=== PATIENT | male | born 1945 | race Caucasian/White ===

== ENCOUNTER → 2022-07-13 | Outpatient (CLI) | payer MEDICARE ==
[2022-07-13 11:12] VITALS: BP 147/83; PULSE 68; RESP 18; TEMP 97.9
--- NOTE | 2022-07-13 14:38 | P.PAINPG ---
PQRS Measure Charge Sheet Comment: HISTORY OF PRESENT ILLNESS: 77 yr old male w niece at side as a referral from Dr. Pretty presents today w severe and chronic LBP secondary to for evaluation. Pt states his pain level is currently at /10 in intensity, intermittent, sharp pain, localized in kelsey lwoer lumbar spine w radiation towards the RLE and R ankle. Pain is provoked w cold weather, inactivity and sitting for periods of 30 min or more. Pain is alleviated in PT currently x 4 wks, massage integrated w PT, chiropractic treatments 2-3 times weekly x 2 mo 4 yrs ago, medications (Neurontin), topicals, repositioning and rest. PMH: MDD, OA, BPH, Hyperlipdemia, Hx of CHI, Parkinsons Disorder, Seizure Disorder PSH: Inguinal Hernia Repair, Ventral Hernia Repair, Colonoscopy SH: Negative x 3 FH: Non contributory All: NKDA Meds: See list REVIEW OF ORGAN SYSTEMS: CONSTITUTIONAL: No fevers or chills. No recent weight loss. NEUROLOGICAL: + numbness and tingling along the distal extremities. No seizure disorders or headaches. MUSCULOSKELETAL: + pain PSYCHIATRIC: Denies current depression or suicidal thoughts. Physical Examinations : Constitutional : Cooperative , not in acute distress . Neurologic : Cranial nerve II to XII intact. No focal neurological deficits. Psychiatric : alert & oriented x 3. Matching mood & appropriate affect. Judgment & insight intact. Musculoskeletal : Cervical Spine Motor strength in the deltoid and biceps: Normal right side. Normal Left side Motor strength biceps and the wrist extensors: Normal right side . Normal left side Motor strength in the triceps muscle: Normal right side. Normal left side Deep tendon reflexes: Normal at the biceps. Normal at Brachioradialis. Normal at triceps Vertebral body tenderness to deep palpation over Cervical facet loading test: positive bilaterally Spurling test: positive bilaterally Neck distraction test: positive bilaterally Afia sign: positive bilaterally Lumbar spine Motor strength lower extremities ,thigh and legs 5/5 Right side , 5/5 Left side Deep tendon reflexes : Normal Knee Jerk. Normal Ankle Jerk Vertebral body tenderness over L5 Lumbar facet Loading Test: positive Right / positive Left Range of motion of the lumbar spine Flexion 30 degrees, extension 10 degrees Straight Leg Raise test: Left/ Right positive at degree Elyssa test: positive right / positive left. Severe tenderness over the Sacroiliac joint on the Right / Left sides Gaenslen test: positive bilaterally Seated flexion test: positive bilaterally. Sacral spine : Severe tenderness over the Sacroiliac joint: right side / left side Range of motion: Flexion of the lumbar spine <60 degrees Range of motion: Extension of the lumbar spine <20 degrees Gaenslen's Test positive Buster's Test positive Elyssa test: positive right side / left side Thigh Thrust Test Sacral Thrust Test Imaging: CT without contrast of the lumbar spine from 05/12/22 reviewed. Assessment/ Plan : Lumbar DDD, Lumbar spondylosis, Lumbar stenosis Recommendation of DANIEL L5-S1. May need a series of injections, up to 3 wthin a 6 mo period, for optimal pain relief. Risks, benefits of procedure discussed and patient verbalized understanding. Admits to aspirin or anti- coagulant use or medical history of diabetes. Protocol for discontinuation/ continuation of medications sean procedure discussed. All questions answered. I have spent greater than 30 minutes on patient care today. Dr Mesa was available by phone for the evaluation of this patient. The time was used to review the medical records including relevant urine studies and Prescription history (MAPs), review of the available imaging, evaluation and examination of the patient, coordination of care with the medical staff and if applicable referring physicians, as well as creation of the medical record Home Medications: Ambulatory Orders Aspirin 81 mg PO DAILY 06/05/17 Atorvastatin [Lipitor] 40 mg PO HS 06/05/17 Multivitamin [Men's Multi-Vitamin] 1 each PO DAILY 06/05/17 Naproxen [Naprosyn] 375 mg PO Q12HR 06/05/17 Tamsulosin [Flomax] 0.4 mg PO DAILY 06/05/17 Gabapentin [Neurontin] 300 mg PO TID 07/13/22 Meloxicam [Mobic] 15 mg PO 07/13/22 Controlled Substance Measures - Controlled Substance Measures Is patient prescribed a controlled substance at discharge?: No
== END ==
LOC: PNWHC3 10:11
PROVIDERS: ATTEND Specialist
DX: M48.062 Spinal stenosis, lumbar region with neurogenic claudication (principal); M51.26 Other intervertebral disc displacement, lumbar region; M47.816 Spondylosis without myelopathy or radiculopathy, lumbar region; M51.36 Other intervertebral disc degeneration, lumbar region; F32.9 Major depressive disorder, single episode, unspecified; M19.90 Unspecified osteoarthritis, unspecified site; E78.5 Hyperlipidemia, unspecified; G40.909 Epilepsy, unspecified, not intractable, without status epilepticus
CPT/HCPCS: 99211

== ENCOUNTER 2022-07-24 14:34 | Inpatient (IN) | payer MEDICARE ==
[2022-07-24 15:18] LABS: Basophils % (A) 0 %; Eosinophils % (A) 0 %; HGB 16.6 gm/dL (13.0-17.5); Lymphocytes # (A) 0.9 k/uL (1.0-4.8); Lymphocytes % (A) 7 %; MCHC 34.5 g/dL (31.0-37.0); Mean Platelet Volume 8.3; Monocytes % (A) 8 %; Neutrophils # (A) 10.9 k/uL (1.3-7.7); Neutrophils % (A) 83 %; Platelet Count 168 k/uL (150-450); RBC 5.51 m/uL (4.30-5.90); RDW 13.5 % (11.5-15.5); WBC 13.1 k/uL (3.8-10.6)
[2022-07-24 15:28] LABS: Albumin 4.7 g/dL (3.5-5.0); Calcium 9.5 mg/dL (8.4-10.2); Magnesium 2.1 mg/dL (1.6-2.3); Total Bilirubin 1.5 mg/dL (0.2-1.3); Total Protein 6.7 g/dL (6.3-8.2)
--- NOTE | 2022-07-24 16:18 | XR ---
EXAMINATION TYPE: XR chest 1V portable DATE OF EXAM: 07/24/2022 COMPARISON: None HISTORY: AMS TECHNIQUE: Single frontal view of the chest is obtained. FINDINGS: There is no focal air space opacity, pleural effusion, or pneumothorax seen. The cardiac silhouette size is within normal limits. The osseous structures are intact. IMPRESSION: No acute process.
--- NOTE | 2022-07-24 16:21 | ED ---
General Adult HPI - General Chief complaint: Altered Mental Status Stated complaint: weakness Time Seen by Provider: 07/24/22 14:41 Source: patient, family, EMS, RN notes reviewed, old records reviewed Mode of arrival: EMS Limitations: altered mental status - History of Present Illness Initial comments: 77-year-old male presents from home for evaluation of increased confusion and increased difficulty with ADLs. Patient was found on his couch by family. Patient had not removed in the past 12 hours. He's been having some difficulty with even simple tasks. Patient himself is alert, slow to respond but oriented. He does not wish to be evaluated but agrees to some baseline testing. He has a history of Parkinson's. - Related Data Home Medications Medication Instructions Recorded Confirmed Atorvastatin [Lipitor] 40 mg PO HS 06/05/17 07/24/22 Tamsulosin [Flomax] 0.4 mg PO DAILY 06/05/17 07/24/22 Gabapentin [Neurontin] 300 mg PO TID 07/13/22 07/24/22 Meloxicam [Mobic] 15 mg PO DAILY 07/13/22 07/24/22 Carbidopa/Levodopa 2 tab PO QID 07/24/22 07/24/22 [Carbidopa-Levodopa 25-100 Tab] DULoxetine HCL [Cymbalta] 60 mg PO DAILY 07/24/22 07/24/22 amantadine HCL [Amantadine] 100 mg PO TID 07/24/22 07/24/22 Allergies Allergy/AdvReac Type Severity Reaction Status Date / Time No Known Allergies Allergy Verified 07/24/22 15:48 Review of Systems ROS Statement: Those systems with pertinent positive or pertinent negative responses have been documented in the HPI. ROS Other: All systems not noted in ROS Statement are negative. Past Medical History Past Medical History: Dementia, Musculoskeletal Disorder Additional Past Medical History / Comment(s): Parkinsons, possible but unconfirmed History of Any Multi-Drug Resistant Organisms: None Reported Past Surgical History: Unable to Obtain Past Psychological History: No Psychological Hx Reported Smoking Status: Never smoker General Exam Limitations: altered mental status General appearance: alert, in no apparent distress Head exam: Present: atraumatic, normocephalic Eye exam: Present: normal appearance, PERRL ENT exam: Present: mucous membranes dry Neck exam: Present: normal inspection. Absent: tenderness, meningismus Respiratory exam: Present: normal lung sounds bilaterally. Absent: respiratory distress, wheezes Cardiovascular Exam: Present: regular rate, normal rhythm GI/Abdominal exam: Present: soft. Absent: distended, tenderness, guarding Extremities exam: Present: normal inspection, normal capillary refill Neurological exam: Present: alert, other (Rigid). Absent: motor sensory deficit Psychiatric exam: Present: normal affect, normal mood Skin exam: Present: warm, dry, intact Course Vital Signs 07/24/22 07/24/22 07/24/22 14:35 17:03 18:05 Temperature 98.1 F Pulse Rate 85 80 79 Respiratory 18 16 18 Rate Blood Pressure 140/74 136/77 133/80 O2 Sat by Pulse 97 97 97 Oximetry Medical Decision Making - Medical Decision Making 77-year-old male history of Parkinson's, history of dementia which is a recent diagnosis her patient presenting from home, found by paramedics on couch, no external signs of trauma but the patient. He had not been able to move since he was placed there by family friend 12 hours prior. Patient himself does not have any complaints there is slow to respond. I did perform workup including CT brain, chest x-ray, laboratory testing. No significant abnormality with the exception of some dehydration and leukocytosis of uncertain etiology. Patient provided IV fluids. I think he will benefit from a hospital stay, evaluation for the need for possible placement or is he able to remain at home and his current state. Because case with Stephani covering for [facility] - Lab Data Result diagrams: 07/24/22 15:02 07/24/22 15:02 Lab Results 07/24/22 07/24/22 07/24/22 Range/Units 15:02 15:02 16:33 WBC 13.1 H (3.8-10.6) k/uL RBC 5.51 (4.30-5.90) m/uL Hgb 16.6 (13.0-17.5) gm/dL Hct 48.0 (39.0-53.0) % MCV 87.0 (80.0-100.0) fL MCH 30.0 (25.0-35.0) pg MCHC 34.5 (31.0-37.0) g/dL RDW 13.5 (11.5-15.5) % Plt Count 168 (150-450) k/uL MPV 8.3 Neutrophils % 83 % Lymphocytes % 7 % Monocytes % 8 % Eosinophils % 0 % Basophils % 0 % Neutrophils # 10.9 H (1.3-7.7) k/uL Lymphocytes # 0.9 L (1.0-4.8) k/uL Monocytes # 1.0 (0-1.0) k/uL Eosinophils # 0.0 (0-0.7) k/uL Basophils # 0.0 (0-0.2) k/uL Sodium 140 (137-145) mmol/L Potassium 4.0 (3.5-5.1) mmol/L Chloride 98 (98-107) mmol/L Carbon Dioxide 27 (22-30) mmol/L Anion Gap 15 mmol/L BUN 38 H (9-20) mg/dL Creatinine 1.07 (0.66-1.25) mg/dL Est GFR (CKD-EPI)AfAm 79 (>60 ml/min/1.73 sqM) Est GFR (CKD-EPI)NonAf 68 (>60 ml/min/1.73 sqM) Glucose 163 H (74-99) mg/dL Calcium 9.5 (8.4-10.2) mg/dL Magnesium 2.1 (1.6-2.3) mg/dL Total Bilirubin 1.5 H (0.2-1.3) mg/dL AST 128 H (17-59) U/L ALT 59 H (4-49) U/L Alkaline Phosphatase 109 (38-126) U/L Total Protein 6.7 (6.3-8.2) g/dL Albumin 4.7 (3.5-5.0) g/dL Urine Color Yellow Urine Appearance Clear (Clear) Urine pH 5.0 (5.0-8.0) Ur Specific [place] 1.024 (1.001-1.035) Urine Protein 1+ H (Negative) Urine Glucose (UA) 3+ H (Negative) Urine Ketones Trace H (Negative) Urine Blood Large H (Negative) Urine Nitrite Negative (Negative) Urine Bilirubin Negative (Negative) Urine Urobilinogen <2.0 (<2.0) mg/dL Ur Leukocyte Esterase Negative (Negative) Urine RBC 1 (0-5) /hpf Urine WBC 2 (0-5) /hpf Disposition Clinical Impression: Altered mental status, Dementia, Dehydration Disposition: ADMITTED IP TO THIS HOSP Condition: Stable Is patient prescribed a controlled substance at d/c from ED?: No Referrals: Mimi Bingham MD [Primary Care Provider] - 1-2 days Time of Disposition: 18:28
[2022-07-24 16:46] LABS: Appearance,Urine Clear (Clear); Bilirubin,Urine Negative (Negative); Blood,Urine Large (Negative); Color,Urine Yellow; Glucose,Urine (UA) 3+ (Negative); Ketones,Urine Trace (Negative); Leukocyte Esterase,Urine Negative (Negative); Nitrite,Urine Negative (Negative); Protein,Urine 1+ (Negative); RBC,Urine 1 /hpf (0-5); Specific Gravity,Urine 1.024 (1.001-1.035); Urobilinogen,Urine <2.0 mg/dL (<2.0); WBC,Urine 2 /hpf (0-5)
--- NOTE | 2022-07-24 17:00 | CT ---
EXAMINATION TYPE: CT brain wo con DATE OF EXAM: 07/24/2022 COMPARISON: None HISTORY: AMS weakness CT DLP: 1182.4 mGycm Automated exposure control for dose reduction was used. FINDINGS: The ventricles, basal cisterns and sulci over convexities are moderately enlarged consistent with mod erate generalized atrophy which is appropriate for the patient's age. No abnormal density is seen throughout the brain parenchyma and there is no mass effect or shift of m idline structures. There is no acute intracranial or extra-axial hemorrhage. The posterior fossa including the brainstem, fourth ventricle and cerebellar pontine angles are gross ly normal. The intraorbital contents appear normal and symmetric. Visualized paranasal sinuses and mastoid air c ells are well aerated IMPRESSION: MODERATE ATROPHY APPROPRIATE FOR THE PATIENT'S AGE. THERE IS NO ACUTE BLEED OR MASS EFFECT.
[2022-07-24] MEDS ORDERED: SODIUM CHLORIDE 0.9% 1,000 ML IV ONE (17:04)
[2022-07-24] MEDS ORDERED: NALOXONE 0.4 MG/ML 1 ML VIAL IV PRN (18:24)
[2022-07-24] MEDS ORDERED: ACETAMINOPHEN TAB 325 MG TAB PO PRN (18:24)
[2022-07-24] MEDS: SODIUM CHLORIDE 0.9% 1,000 ML IV SCH (18:58)
--- NOTE | 2022-07-25 11:18 | P.CNNES ---
History of Present Illness Consult date: 07/25/22 Requesting physician: Galen Javier Reason for Consult: AMS, hx of Parkinson's History of Present Illness: This is a 77-year-old gentleman with history of Parkinson's disease presented emergency department for increased confusion and difficulty with his ADLs. Some of the history is obtained from medical records. Patient has history of Parkinson's disease and is seems the patient has been having difficulty with simple tasks and he was found on the couch with a family in the same spot for 12 hours per the ED note. According to patient he has history of Parkinson's disease and he follows up with a neurologist but does not recall the name he said that he walks independently. He states that he does not want to be in the hospital once to go back home and that's when he will feel better. He denies of any recent fever, headache. He stated he stopped drinking alcohol for at least one year. 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 His Parkinson disease the patient is on Sinemet 10185 2tablets 4 times a day. He is on amantadine 1 tablet 3 times a day. Some other workup during his hospital visit Patient is afebrile. AST of 128 and ALT is 59. Initial serum glucose is 163. Calcium is 9.5 and sodium is 140. CT of the head is reported as moderate atrophy appropriate for the patient's a ge. There is no acute bleed or mass effect. I personally reviewed that she had an agree with the report. Review of Systems Review of system: The 12 point system was reviewed and apparent positive and negative per HPI. Past Medical History Past Medical History: Dementia, Musculoskeletal Disorder Additional Past Medical History / Comment(s): Parkinsons, possible but unconfirmed History of Any Multi-Drug Resistant Organisms: None Reported Past Surgical History: Unable to Obtain Past Psychological History: No Psychological Hx Reported Smoking Status: Never smoker Medications and Allergies Home Medications Medication Instructions Recorded Confirmed Type Atorvastatin [Lipitor] 40 mg PO HS 06/05/17 07/24/22 History Tamsulosin [Flomax] 0.4 mg PO DAILY 06/05/17 07/24/22 History Gabapentin [Neurontin] 300 mg PO TID 07/13/22 07/24/22 History Meloxicam [Mobic] 15 mg PO DAILY 07/13/22 07/24/22 History Carbidopa/Levodopa 2 tab PO QID 07/24/22 07/24/22 History [Carbidopa-Levodopa 25-100 Tab] DULoxetine HCL [Cymbalta] 60 mg PO DAILY 07/24/22 07/24/22 History amantadine HCL [Amantadine] 100 mg PO TID 07/24/22 07/24/22 History Allergies Allergy/AdvReac Type Severity Reaction Status Date / Time No Known Allergies Allergy Verified 07/24/22 15:48 Physical Examination - Vital Signs Vital Signs: Vital Signs Temp Pulse Resp BP Pulse Ox 07/25/22 10:03 68 18 145/77 96 07/25/22 08:14 66 18 148/81 96 07/25/22 05:30 98.4 F 70 16 125/70 97 07/25/22 03:50 72 16 115/89 96 07/25/22 01:07 97.8 F 72 15 111/67 96 07/24/22 22:00 78 17 138/72 95 07/24/22 21:00 77 18 129/68 95 07/24/22 20:37 78 18 147/76 98 07/24/22 19:01 76 16 119/85 97 07/24/22 18:05 79 18 133/80 97 07/24/22 17:03 80 16 136/77 97 07/24/22 14:35 98.1 F 85 18 140/74 97 Intake and Output 07/24/22 07/25/22 07/25/22 22:59 06:59 14:59 Output Total 800 Balance -800 Output: Urine 800 GENERAL: The patient is lying in bed and is not in acute distress. CHEST: The heart rate is regular rate rhythm. No murmurs to auscultation. LUNG: Clear to auscultation bilaterally no wheezing noted throughout. Not labored breathing. ABDOMEN/GI: Bowel sounds present in all 4 quadrants. No tenderness to palpation throughout. NEUROLOGICAL: Higher mental function: The patient is awake, alert, oriented to self. He correctly states he is in the hospital but does not know name. He stated the current year is 1944 (but it seems referring to date of ). Somewhat slow responding. Correctly names objects (pen watch). No aphasia or neglect. Cranial nerves: The pupils are round, equal and reactive to light and accommodation. Visual patton are full to confrontation throughout. Extraocular movement is intact no nystagmus is noted. Facial sensation is normal to touch throughout. The facial strength is normal throughout. Has somewhat flat face. Tongue is midline and moved [id number] without any difficulty. No dysarthria is noted. Shoulder shrug is normal bilaterally. Motor: The strength is 5 over 5 throughout uppers while lowers has increase tone but able to lift above gravity proximally. Normal bulk. Has resting tremor of bilateral hand (right > left). Cerebellum: Unable to assess. Sensation: Sensation is normal to touch throughout. Reflexes (right/left): 1+ throughout. Plantars are Mute bilaterally. Results - Laboratory Findings CBC and BMP: 07/24/22 15:02 07/24/22 15:02 Abnormal Lab Findings: Abnormal Labs 07/24/22 07/24/22 07/24/22 15:02 15:02 16:33 WBC 13.1 H Neutrophils # 10.9 H Lymphocytes # 0.9 L BUN 38 H Glucose 163 H Total Bilirubin 1.5 H AST 128 H ALT 59 H Urine Protein 1+ H Urine Glucose (UA) 3+ H Urine Ketones Trace H Urine Blood Large H Assessment and Plan Assessment: Altered mental status and likely due to metabolic encephalopathy and possibly component of dementia from Parkinson's Parkinson's disease Elevated liver function with ASC more than ALT. States he stopped drinking about a year ago. History of alcohol use (last use 1 year ago). Plan: I ordered via B12, folate, TSH, ammonia level, routine EEG Regarding his amantadine I recommend 1 tablet twice a day not 3 times a day and his last dose should be at 2 PM and not later (is a stimulant). Continue his Sinement home dose. We'll defer the rest of the medical management to primary team. Consult PT and OT for gait training. Recommend patient to continue following-up with his neurologist as outpatient. I will attempt to contact family members later today for more information. Thank you for the consultation. José Miguel Bermudez M.D. Neuro-Hospitalist Time with Patient: Greater than 30
[2022-07-25] MEDS: SODIUM CHLORIDE 0.9% 1,000 ML IV SCH ×2 (12:04→21:49)
[2022-07-25] MEDS: CARBIDOPA-LEVODOPA 25-100 MG 1 EACH TAB PO SCH ×5 (12:04→21:47)
[2022-07-25] MEDS: HEPARIN SODIUM,PORCINE/PF 5,000 UNIT/0.5 ML SYRINGE SQ SCH ×2 (17:14→17:58)
--- NOTE | 2022-07-25 21:46 | P.HPIM ---
History of Present Illness H&P Date: 07/25/22 Chief Complaint: Altered mental status Patient is a 77-year-old male with a known history of Parkinson disease and dementia was brought to the hospital due to increased confusion and difficulty with ADLs. Patient was found on his couch by family. Patient does have chronic spasticity and Parkinson's disease. Currently taking Sinemet. Patient has been having difficulty with even simple tasks. Patient is otherwise awake alert and oriented but slow to respond. Patient does not have any focal neurological deficits. No facial droop or dysarthria. Patient follows with neurology as an outpatient. Patient initially does not want to come to the hospital but agrees for baseline testing. Denies any complaints of abdominal pain. No nausea vomiting or diarrhea. Denied any lower abdominal discomfort. No difficulty urination or dysuria. Patient has been afebrile. Patient lives by himself. On admission chest x-ray showed no acute process. CT head showed moderate atrophy appropriate for the patient's age. There is no acute bleed or mass-effect. Laboratory test showed WC 13.1 hemoglobin 16.6 and platelets 168 and neutrophils 10.9 Sodium 140 potassium 4.0 chloride 98 BUN 38 and creatinine 1.07 Blood sugar is 163 Total bilirubin level is 1.5 AST 128 ALT 59 alk phos 109 ammonia 28 Urinalysis showed 3+ glucose and trace ketones and large blood. Review of Systems Complete review of systems could not be obtained due to patient except as per HPI Past Medical History Past Medical History: Dementia, Musculoskeletal Disorder Additional Past Medical History / Comment(s): Parkinsons, possible but unconfirmed History of Any Multi-Drug Resistant Organisms: None Reported Past Surgical History: Unable to Obtain Past Psychological History: No Psychological Hx Reported Smoking Status: Never smoker Medications and Allergies Home Medications Medication Instructions Recorded Confirmed Type Atorvastatin [Lipitor] 40 mg PO HS 06/05/17 07/24/22 History Tamsulosin [Flomax] 0.4 mg PO DAILY 06/05/17 07/24/22 History Gabapentin [Neurontin] 300 mg PO TID 07/13/22 07/24/22 History Meloxicam [Mobic] 15 mg PO DAILY 07/13/22 07/24/22 History Carbidopa/Levodopa 2 tab PO QID 07/24/22 07/24/22 History [Carbidopa-Levodopa 25-100 Tab] DULoxetine HCL [Cymbalta] 60 mg PO DAILY 07/24/22 07/24/22 History amantadine HCL [Amantadine] 100 mg PO TID 07/24/22 07/24/22 History Allergies Allergy/AdvReac Type Severity Reaction Status Date / Time No Known Allergies Allergy Verified 07/24/22 15:48 Physical Exam Vitals: Vital Signs Temp Pulse Resp BP Pulse Ox 07/25/22 10:03 68 18 145/77 96 07/25/22 08:14 66 18 148/81 96 07/25/22 05:30 98.4 F 70 16 125/70 97 07/25/22 03:50 72 16 115/89 96 07/25/22 01:07 97.8 F 72 15 111/67 96 07/24/22 22:00 78 17 138/72 95 07/24/22 21:00 77 18 129/68 95 07/24/22 20:37 78 18 147/76 98 07/24/22 19:01 76 16 119/85 97 07/24/22 18:05 79 18 133/80 97 07/24/22 17:03 80 16 136/77 97 07/24/22 14:35 98.1 F 85 18 140/74 97 Intake and Output 07/24/22 07/25/22 07/25/22 22:59 06:59 14:59 Output Total 800 Balance -800 Output: Urine 800 PHYSICAL EXAMINATION: Patient is lying in the bed comfortably, no acute distress, awake alert and oriented but slow to respond... HEENT: Normocephalic. Neck is supple. Pupils reactive. Nostrils clear. Oral cavity is moist. Neck reveals no JVD, carotid bruits, or thyromegaly. CHEST EXAMINATION: Trachea is central. Symmetrical expansion. Lung patton clear to auscultation and percussion. CARDIAC: Normal S1, S2 with no gallops. No murmurs ABDOMEN: Soft. Bowel sounds present. Nontender. No organomegaly. No abdominal bruits. Extremities: reveal no edema. No clubbing or cyanosis Neurologically awake, alert, oriented x2-3. Bilateral spasticity of the upper and lower extremities. Muscle strength 5 out of 5 in all 4 extremities. No facial droop. No gross focal deficits noted. Skin: No rash or skin lesions. Psychiatric: Coperative. Nonsuicidal, Musculoskeletal: No joint swelling or deformity. Results CBC & Chem 7: 07/24/22 15:02 07/24/22 15:02 Labs: Abnormal Lab Results - Last 24 Hours (Table) 07/24/22 07/24/22 07/24/22 Range/Units 15:02 15:02 16:33 WBC 13.1 H (3.8-10.6) k/uL Neutrophils # 10.9 H (1.3-7.7) k/uL Lymphocytes # 0.9 L (1.0-4.8) k/uL BUN 38 H (9-20) mg/dL Glucose 163 H (74-99) mg/dL Total Bilirubin 1.5 H (0.2-1.3) mg/dL AST 128 H (17-59) U/L ALT 59 H (4-49) U/L Urine Protein 1+ H (Negative) Urine Glucose (UA) 3+ H (Negative) Urine Ketones Trace H (Negative) Urine Blood Large H (Negative) Thrombosis Risk Factor Assmnt - DVT/VTE Prophylaxis DVT/VTE Prophylaxis: Pharmacologic Prophylaxis ordered Assessment and Plan Assessment: Altered mental status possible metabolic encephalopathy along with underlying dementia and Parkinson's disease. Dehydration and volume depletion Parkinson's disease History of alcohol use Dementia DVT prophylax with heparin subcu Plan: Patient will be continued on IV hydration and monitor electrolytes. Follow-up B12, folate and TSH levels. Ammonia level within normal limits. Neurology has seen the patient and recommended routine EEG. Continue with Sinemet and amantadine 1 tablet twice daily as per neurology recommendations. PT OT and follow-up closely. Patient wants to be discharged home. Discussed with his family at bedside. Time with Patient: Greater than 30
--- NOTE | 2022-07-26 02:29 | EEG ---
ELECTROENCEPHALOGRAM REPORT CLINICAL HISTORY: This is a 77-year-old gentleman with altered mental status. The video EEG is obtained to evaluate for seizure and epileptiform activity. RELEVANT MEDICATION: The patient is not on any seizure medication. EEG TYPE: A routine 21-channel EEG is performed with video using the 10/20 electrode placement system. DESCRIPTION: The background consists of [id number] voltage of 2 to 3 hertz nonrhythmic delta activity and sometimes intermixed with theta activity. There is no physiological sleep architecture. There is no focal slowing. There is [id number] amount of diffuse myogenic artifact. INTERICTAL AND ICTAL: None. ACTIVATION PROCEDURE: Photic stimulation did not evoke posterior driving response. There is no abnormality during the photic stimulation. Hyperventilation is not performed. CLINICAL INTERPRETATION: This is an abnormal routine EEG. The background slowing is suggestive of severe encephalopathy. Otherwise, there is no focal slowing, epileptiform discharges, or seizure on the EEG. Clinical correlation is recommended NAVYA / GUYN: [id number] / [id number]
[2022-07-26] MEDS: HEPARIN SODIUM,PORCINE/PF 5,000 UNIT/0.5 ML SYRINGE SQ SCH ×3 (03:00→17:07)
[2022-07-26] MEDS: CARBIDOPA-LEVODOPA 25-100 MG 1 EACH TAB PO SCH ×4 (09:06→21:14)
[2022-07-26] MEDS: TAMSULOSIN 0.4 MG CAP.ER.24H PO SCH (09:07)
[2022-07-26] MEDS: SODIUM CHLORIDE 0.9% 1,000 ML IV SCH ×2 (09:16→21:16)
[2022-07-26 10:51] LABS: Basophils # (A) 0.06 X 10*3/uL (0.00-0.10); Basophils % (A) 0.6 %; Eosinophils # (A) 0.21 X 10*3/uL (0.04-0.35); Eosinophils % (A) 2.2 %; HGB 15.3 g/dL (13.0-17.0); Immature Grans, Automated 0.5 %; Lymphocytes # (A) 1.06 X 10*3/uL (0.90-5.00); Lymphocytes % (A) 11.3 %; MCH 30.2 pg (27.0-32.0); MCHC 32.6 g/dL (32.0-37.0); MCV 92.7 fL (80.0-97.0); Mean Platelet Volume 10.4 fL (9.5-12.2); Monocytes # (A) 0.86 X 10*3/uL (0.20-1.00); Monocytes % (A) 9.2 %; NRBC Per 100 WBC 0 /100 WBCS (0.0-0.0); Neutrophils # (A) 7.14 X 10*3/uL (1.80-7.70); Neutrophils % (A) 76.2 %; Platelet Count 138 X 10*3/uL (140-440); RBC 5.07 X 10*6/uL (4.40-5.60); RDW 13.2 % (11.5-14.5); WBC 9.38 X 10*3/uL (4.50-10.00)
[2022-07-26 11:09] LABS: African American GFR (CKD) 96.5 (60.0-200.0); Albumin 3.5 g/dL (3.8-4.9); Albumin/Globulin Ratio 1.94 (1.60-3.17); Anion Gap 14.3 mmol/L (10.00-18.00); BUN/Creat Ratio 18.11 Ratio (12.00-20.00); Blood Urea Nitrogen 16.3 mg/dL (9.0-27.0); Calcium 8.5 mg/dL (8.7-10.3); Carbon Dioxide 19.7 mmol/L (20.0-27.5); Globulin 1.8 g/dL (1.6-3.3); Non-African American GFR(CKD) 83.3 (60.0-200.0); Potassium 4.2 mmol/L (3.5-5.5); Total Bilirubin 0.9 mg/dL (0.30-1.20); Total Protein 5.3 g/dL (6.2-8.2)
[2022-07-26 12:12] VITALS: RESP 16
--- NOTE | 2022-07-26 12:46 | P.PN ---
Subjective Progress Note Date: 07/26/22 The patient is seen at bedside and per nurse. I saw him and he feels a bit better. I spoke with his niece (via phone) and she stated that patient resides byself and is a brown. He follows-up with Dr. Abdias Hightower (neurologist) who patient has an appointment this coming Monday and re-evaluate if his medications needs to be modified. Objective - Vital Signs Vital signs: Vital Signs Temp 98.9 F 07/26/22 11:27 Pulse 87 07/26/22 11:27 Resp 16 07/26/22 11:27 BP 122/79 07/26/22 11:27 Pulse Ox 96 07/26/22 11:27 FiO2 Intake & Output 07/25/22 07/26/22 07/26/22 18:59 06:59 18:59 Intake Total 75 Output Total 1700 575 Balance 75 -1700 -575 Weight 73 kg Intake: Intake, IV Titration 75 Amount Sodium Chloride 0.9% 1, 75 000 ml @ 75 mls/hr IV . [id number] [facility] Rx#:[id number] Output: Urine 1700 575 Other: Voiding Method External Catheter # Voids 1 - Exam GENERAL: The patient is lying in bed and is not in acute distress. NEUROLOGICAL: Higher mental function: The patient is awake, alert, oriented to self. He correctly states he is in the hospital but does not know name. Is more awake today and responsive. Correctly names objects (pen watch). No aphasia or neglec t. Cranial nerves: The pupils are round, equal and reactive to light and accommodation. Visual patton are full to confrontation throughout. Extraocular movement is intact no nystagmus is noted. Facial sensation is normal to touch throughout. The facial strength is normal throughout. Has somewhat flat face. Tongue is midline and moved [id number] without any difficulty. No dysarthria is noted. Shoulder shrug is normal bilaterally. Motor: The strength is increase tone over the uppers and lowers (Lowers > uppers). Moving all extremities above gravity but lowers more than uppers. Normal bulk. Has resting tremor predominately right hand. Cerebellum: Unable to assess. Sensation: Sensation is normal to touch throughout. Reflexes (right/left): 1+ throughout. Plantars are Mute bilaterally. Routine EEG on 07/25/2022: Is abnormal. The background slowing suggestive of severe encephalopathy. Otherwise there is no focal slowing, epileptiform discharge or seizure on the EEG Ammonia level is 28 CK level is 1809 TSH is 1.070 Folate is 14.90 Serum vitamin B12 is 546 - Labs CBC & Chem 7: 07/26/22 05:59 07/26/22 05:59 Labs: Abnormal Lab Results - Last 24 Hours (Table) 07/25/22 07/26/22 07/26/22 Range/Units 15:26 05:59 05:59 Plt Count 138 L (140-440) X 10*3/uL Immature Gran # 0.05 H (0.00-0.04) X 10*3/uL Carbon Dioxide 19.7 L (20.0-27.5) mmol/L Calcium 8.5 L (8.7-10.3) mg/dL AST 140 H (14-35) U/L ALT 67 H (10-49) U/L Creatine Kinase 1809 H* (35-257) U/L Total Protein 5.3 L (6.2-8.2) g/dL Albumin 3.5 L (3.8-4.9) g/dL Assessment and Plan Assessment: Altered mental status and likely due to metabolic encephalopathy and possibly component of dementia from Parkinson's Increase tone in all extremities since patient had cessation of Parkinson's medications for a prolonged of time. Parkinson's disease Elevated liver function with ASC more than ALT. States he stopped drinking about a year ago. History of alcohol use (last use 1 year ago). Plan: I increased his Sinement 25-100mg 1 tab four times a day to five times a day. Decreased amantadine 1 tablet twice a day not 3 times a day and his last dose should be at 2 PM and not later (is a stimulant). We'll defer the rest of the medical management to primary team. Consult PT and OT for gait training. Recommend patient to continue following-up with his neurologist (Dr. Keaton Hightower) as outpatient and has an appointment Next Monday. I personally spoke with his niece and updated her of the plan. Also discussed the plan with his primary team. José Miguel Bermudez M.D. Neuro-Hospitalist Time with Patient: Less than 30
[2022-07-27] MEDS: HEPARIN SODIUM,PORCINE/PF 5,000 UNIT/0.5 ML SYRINGE SQ SCH ×2 (00:27→08:15)
[2022-07-27] MEDS: CARBIDOPA-LEVODOPA 25-100 MG 1 EACH TAB PO SCH ×3 (05:31→14:27)
[2022-07-27] MEDS: TAMSULOSIN 0.4 MG CAP.ER.24H PO SCH (08:15)
[2022-07-27] MEDS: SODIUM CHLORIDE 0.9% 1,000 ML IV SCH (08:17)
[2022-07-27 09:19] LABS: Anion Gap 10.7 mmol/L (10.00-18.00); BUN/Creat Ratio 16.2 Ratio (12.00-20.00); Blood Urea Nitrogen 16.2 mg/dL (9.0-27.0); Calcium 8.2 mg/dL (8.7-10.3); Carbon Dioxide 24.3 mmol/L (20.0-27.5); Non-African American GFR(CKD) 73.3 (60.0-200.0); Potassium 3.8 mmol/L (3.5-5.5)
[2022-07-27 09:35] LABS: Basophils # (A) 0.05 X 10*3/uL (0.00-0.10); Basophils % (A) 0.5 %; Eosinophils # (A) 0.19 X 10*3/uL (0.04-0.35); HCT 40.4 % (39.6-50.0); HGB 14.2 g/dL (13.0-17.0); Immature Grans, Automated 0.5 %; Lymphocytes # (A) 1.33 X 10*3/uL (0.90-5.00); Lymphocytes % (A) 14.1 %; MCH 29.9 pg (27.0-32.0); MCHC 35.1 g/dL (32.0-37.0); MCV 85.1 fL (80.0-97.0); Mean Platelet Volume 10.2 fL (9.5-12.2); Monocytes # (A) 1.01 X 10*3/uL (0.20-1.00); Monocytes % (A) 10.7 %; NRBC Per 100 WBC 0 /100 WBCS (0.0-0.0); Neutrophils # (A) 6.78 X 10*3/uL (1.80-7.70); Neutrophils % (A) 72.2 %; Platelet Count 165 X 10*3/uL (140-440); RBC 4.75 X 10*6/uL (4.40-5.60); RDW 13.2 % (11.5-14.5); WBC 9.41 X 10*3/uL (4.50-10.00)
[2022-07-27 12:00] VITALS: BP 125/79; PULSE 85; TEMP 97.9
--- NOTE | 2022-07-27 13:40 | P.PN ---
Subjective Progress Note Date: 07/26/22 Patient is a 77-year-old male with a known history of Parkinson disease and dementia was brought to the hospital due to increased confusion and difficulty with ADLs. Patient was found on his couch by family. Patient does have chronic spasticity and Parkinson's disease. Currently taking Sinemet. Patient has been having difficulty with even simple tasks. Patient is otherwise awake alert and oriented but slow to respond. Patient does not have any focal neurological deficits. No facial droop or dysarthria. Patient follows with neurology as an outpatient. Patient initially does not want to come to the hospital but agrees for baseline testing. Denies any complaints of abdominal pain. No nausea vomiting or diarrhea. Denied any lower abdominal discomfort. No difficulty urination or dysuria. Patient has been afebrile. Patient lives by himself. On admission chest x-ray showed no acute process. CT head showed moderate atrophy appropriate for the patient's age. There is no acute bleed or mass-effect. Laboratory test showed WC 13.1 hemoglobin 16.6 and platelets 168 and neutrophils 10.9 Sodium 140 potassium 4.0 chloride 98 BUN 38 and creatinine 1.07 Blood sugar is 163 Total bilirubin level is 1.5 AST 128 ALT 59 alk phos 109 ammonia 28 Urinalysis showed 3+ glucose and trace ketones and large blood. 07/26/2022 Patient is currently lying in the bed. Awake alert and oriented 3. Slow to respond. Upper extremity spasticity is better today. Patient denied any complaints of chest pain or shortness breath. No nausea vomiting or abdominal pain or diarrhea. Tolerating oral diet. Denied any difficulty urinating. Denied dysuria or hematuria. Neurology is on board. Sinemet dose increased to 5 times daily and amantadine dose decreased to twice a day. Laboratory data showed neck and sodium 139 potassium 4.2 chloride 105 bicarb is 19.7 BUN 16.3 and creatinine 0.9 CPK level is 1809 and TSH B12 and folate levels within normal limits. Current medications reviewed. Objective - Vital Signs Vital signs: Vital Signs Temp 99.3 F 07/26/22 20:46 Pulse 95 07/26/22 20:46 Resp 16 07/26/22 20:46 BP 132/76 07/26/22 20:46 Pulse Ox 95 07/26/22 20:46 FiO2 Intake & Output 07/26/22 07/26/22 07/27/22 06:59 18:59 06:59 Output Total 1700 1075 Balance -1700 -1075 Output: Urine 1700 1075 Other: Voiding Method External Catheter # Voids 1 # Bowel Movements 1 - Exam PHYSICAL EXAMINATION: Patient is lying in the bed comfortably, no acute distress, awake alert and oriented but slow to respond.. HEENT: Normocephalic. Neck is supple. Pupils reactive. Nostrils clear. Oral cavity is moist. Neck reveals no JVD, carotid bruits, or thyromegaly. CHEST EXAMINATION: Trachea is central. Symmetrical expansion. Lung patton clear to auscultation and percussion. CARDIAC: Normal S1, S2 with no gallops. No murmurs ABDOMEN: Soft. Bowel sounds normal. No organomegaly. No abdominal bruits. Extremities: reveal no edema. No clubbing or cyanosis Neurologically awake, alert, oriented x3 . Patient does have spasticity in the upper and lower extremities mainly left upper extremity.. No gross focal deficits noted Skin: No rash or skin lesions. Psychiatric: Coperative. Nonsuicidal Musculoskeletal: No joint swelling or deformity. Normal range of motion. - Labs CBC & Chem 7: 07/27/22 04:58 07/27/22 04:58 Labs: Abnormal Lab Results - Last 24 Hours (Table) 07/25/22 07/26/22 07/26/22 Range/Units 15:26 05:59 05:59 Plt Count 138 L (140-440) X 10*3/uL Immature Gran # 0.05 H (0.00-0.04) X 10*3/uL Carbon Dioxide 19.7 L (20.0-27.5) mmol/L Calcium 8.5 L (8.7-10.3) mg/dL AST 140 H (14-35) U/L ALT 67 H (10-49) U/L Creatine Kinase 1809 H* (35-257) U/L Total Protein 5.3 L (6.2-8.2) g/dL Albumin 3.5 L (3.8-4.9) g/dL Assessment and Plan Assessment: Altered mental status possible metabolic encephalopathy along with underlying dementia and Parkinson's disease. Acute rhabdomyolysis Dehydration and volume depletion Parkinson's disease History of alcohol use Dementia DVT prophylax with heparin subcu Plan: Patient will be continued on IV hydration and monitor electrolytes. Follow-up B12, folate and TSH levels. Ammonia level within normal limits. Neurology has seen the patient and recommended routine EEG. Continue with Sinemetdose increased. and amantadine 1 tablet twice daily as per neurology recommendations. PT OT is on board.. Anticipate discharged to rehab in the next 24 hours.. Discussed with his family at bedside. Time with Patient: Greater than 30
--- NOTE | 2022-07-27 13:42 | P.DS ---
Providers Date of admission: 07/24/22 18:24 Expected date of discharge: 07/27/22 Attending physician: Beatriz Willoughby Consults: 07/24/22 18:24 Consult Physician Routine Consulting Provider: Jarett Milan Consult Reason/Comments: AMS, history of Parkinson's Do you want consulting provider notified?: Yes Primary care physician: Mimi Bingham Hospital Course: Discharge diagnosis Altered mental status possible metabolic encephalopathy along with underlying dementia and Parkinson's disease. Back to baseline. Acute rhabdomyolysis. Improved Dehydration and volume depletion Parkinson's disease History of alcohol use Dementia DVT prophylax with heparin subcu Hospital course Patient is a 77-year-old male with a known history of Parkinson disease and dementia was brought to the hospital due to increased confusion and difficulty with ADLs. Patient was found on his couch by family. Patient does have chronic spasticity and Parkinson's disease. Currently taking Sinemet. Patient has been having difficulty with even simple tasks. Patient is otherwise awake alert and oriented but slow to respond. Patient does not have any focal neurological deficits. No facial droop or dysarthria. Patient follows with neurology as an outpatient. Patient initially does not want to come to the hospital but agrees for baseline testing. Denies any complaints of abdominal pain. No nausea vomiting or diarrhea. Denied any lower abdominal discomfort. No difficulty urination or dysuria. Patient has been afebrile. Patient lives by himself. On admission chest x-ray showed no acute process. CT head showed moderate atrophy appropriate for the patient's age. There is no acute bleed or mass-effect. Laboratory test showed WC 13.1 hemoglobin 16.6 and platelets 168 and neutrophils 10.9 Sodium 140 potassium 4.0 chloride 98 BUN 38 and creatinine 1.07 Blood sugar is 163 Total bilirubin level is 1.5 AST 128 ALT 59 alk phos 109 ammonia 28 Urinalysis showed 3+ glucose and trace ketones and large blood. 07/26/2022 Patient is currently lying in the bed. Awake alert and oriented 3. Slow to respond. Upper extremity spasticity is better today. Patient denied any complaints of chest pain or shortness breath. No nausea vomiting or abdominal pain or diarrhea. Tolerating oral diet. Denied any difficulty urinating. Denied dysuria or hematuria. Neurology is on board. Sinemet dose increased to 5 times daily and amantadine dose decreased to twice a day. Laboratory data showed neck and sodium 139 potassium 4.2 chloride 105 bicarb is 19.7 BUN 16.3 and creatinine 0.9 CPK level is 1809 and TSH B12 and folate levels within normal limits. 07/27/2022 Patient is sitting with chair. Awake alert and oriented 3. No complaints of chest pain or shortness of breath. Feels better today. Spasticity is much improved and patient is part spreading in physical therapy. Continue with Sinemet and amantadine. Patient has been afebrile. Denied any dysuria or hematuria. No nausea vomiting or abdominal pain or diarrhea. Tolerating oral diet. Laboratory data showed CPK level came down to, BUN 16.2 and creatinine 1.0, bicarb 24.3 and potassium 3.8 sodium 137 And WBC 9.4 hemoglobin 14.2 and platelets 165 Patient is being discharged to rehab today. PHYSICAL EXAMINATION: Patient is lying in the bed comfortably, no acute distress, awake alert and oriented but slow to respond.. HEENT: Normocephalic. Neck is supple. Pupils reactive. Nostrils clear. Oral cavity is moist. Neck reveals no JVD, carotid bruits, or thyromegaly. CHEST EXAMINATION: Trachea is central. Symmetrical expansion. Lung patton clear to auscultation and percussion. CARDIAC: Normal S1, S2 with no gallops. No murmurs ABDOMEN: Soft. Bowel sounds normal. No organomegaly. No abdominal bruits. Extremities: reveal no edema. No clubbing or cyanosis Neurologically awake, alert, oriented x3 . Patient does have spasticity in the upper and lower extremities mainly left upper extremity.. No gross focal deficits noted Skin: No rash or skin lesions. Psychiatric: Coperative. Nonsuicidal Musculoskeletal: No joint swelling or deformity. Normal range of motion. Vital Signs 07/27/22 07/27/22 07/27/22 08:07 09:25 11:59 Temperature 97.5 F L 97.9 F Pulse Rate [ 71 71 85 Pulse Oximetery ] Respiratory 16 16 16 Rate Blood Pressure 147/76 125/79 [Left Arm] O2 Sat by Pulse 95 Oximetry Total time taken greater than 35 minutes including 18 minutes for counseling and coordination of care. Patient Condition at Discharge: Stable Plan - Discharge Summary Discharge Rx Participant: No New Discharge Prescriptions: New Carbidopa-Levodopa 25-100 mg [Sinemet 25-100 mg] 2 each PO 5XD@06,10,14,18,22 7 Days #70 tab Continue Tamsulosin [Flomax] 0.4 mg PO DAILY Atorvastatin [Lipitor] 40 mg PO HS Gabapentin [Neurontin] 300 mg PO TID DULoxetine HCL [Cymbalta] 60 mg PO DAILY Changed amantadine HCL [Amantadine] 100 mg PO BID #0 Discontinued Meloxicam [Mobic] 15 mg PO DAILY Carbidopa/Levodopa [Carbidopa-Levodopa 25-100 Tab] 2 tab PO QID Discharge Medication List Atorvastatin [Lipitor] 40 mg PO HS 06/05/17 [History] Tamsulosin [Flomax] 0.4 mg PO DAILY 06/05/17 [History] Gabapentin [Neurontin] 300 mg PO TID 07/13/22 [History] DULoxetine HCL [Cymbalta] 60 mg PO DAILY 07/24/22 [History] Carbidopa-Levodopa 25-100 mg [Sinemet 25-100 mg] 2 each PO 5XD@06,10,14,18,22 7 Days #70 tab 07/27/22 [Rx] amantadine HCL [Amantadine] 100 mg PO BID #0 07/27/22 [Rx] Follow up Appointment(s)/Referral(s): Bhupinder Boland DO [REFERRING] - 1 Week Discharge Disposition: TRANSFER TO SNF/ECF
--- NOTE | 2022-07-27 16:42 | P.PN ---
Subjective Progress Note Date: 07/27/22 She was seen at bedside and he feels he is doing better compared to initial presentation. He like to be discharged home. Objective - Vital Signs Vital signs: Vital Signs Temp 97.9 F 07/27/22 11:59 Pulse 85 07/27/22 11:59 Resp 16 07/27/22 11:59 BP 125/79 07/27/22 11:59 Pulse Ox 95 07/27/22 08:07 FiO2 Intake & Output 07/26/22 07/27/22 07/27/22 18:59 06:59 18:59 Intake Total 1740 Output Total 1075 700 Balance -1075 1040 Intake: Intake, IV Titration 1200 Amount Sodium Chloride 0.9% 1, 1200 000 ml @ 100 mls/hr IV . Q10H [facility] Rx#:[id number] Oral 540 Output: Urine 1075 700 Other: Voiding Method External Catheter External Catheter External Catheter # Bowel Movements 1 - Exam GENERAL: The patient is lying in bed and is not in acute distress. NEUROLOGICAL: Higher mental function: The patient is awake, alert, oriented to self. He correctly states he is in the hospital but does not know name. Is more awake today and responsive. Correctly names objects (pen watch). No aphasia or neglect. Cranial nerves: The pupils are round, equal and reactive to light and accommodation. Visual patton are full to confrontation throughout. Extraocular movement is intact no nystagmus is noted. Facial sensation is normal to touch throughout. The facial strength is normal throughout. Has somewhat flat face. Tongue is midline and moved [id number] without any difficulty. No dysarthria is noted. Shoulder shrug is normal bilaterally. Motor: Patient increased tone has subsided the today compared to yesterday since yesterday he was a very the spastic. He is able to lift up bilateral upper extremity. He is even able to lift up bilateral lower left better than the right and the right lower has increased tone. Has resting tremor of right hand. Cerebellum: Unable to assess. Sensation: Sensation is normal to touch throughout. Reflexes (right/left): 1+ throughout. Plantars are Mute bilaterally. Routine EEG on 07/25/2022: Is abnormal. The background slowing suggestive of severe encephalopathy. Otherwise there is no focal slowing, epileptiform discharge or seizure on the EEG Ammonia level is 28 CK level is 1809 TSH is 1.070 Folate is 14.90 Serum vitamin B12 is 546 - Labs CBC & Chem 7: 07/27/22 04:58 07/27/22 04:58 Labs: Abnormal Lab Results - Last 24 Hours (Table) 07/27/22 07/27/22 Range/Units 04:58 04:58 Immature Gran # 0.05 H (0.00-0.04) X 10*3/uL Monocytes # 1.01 H (0.20-1.00) X 10*3/uL Glucose 111 H (70-110) mg/dL Calcium 8.2 L (8.7-10.3) mg/dL Creatine Kinase 603 H (35-257) U/L Assessment and Plan Assessment: Altered mental status and likely due to metabolic encephalopathy and possibly component of dementia from Parkinson's Increase tone in all extremities since patient had cessation of Parkinson's medications for a prolonged of time. Parkinson's disease Elevated liver function with ASC more than ALT. States he stopped drinking about a year ago. History of alcohol use (last use 1 year ago). Plan: I increased his Sinement 25-100mg 1 tab four times a day to five times a day (on 07/26/2022). Decreased amantadine 1 tablet twice a day not 3 times a day and his last dose should be at 2 PM and not later (is a stimulant). We'll defer the rest of the medical management to primary team. Consult PT and OT for gait training. Recommend patient to continue following-up with his neurologist (Dr. Keaton Hightower) as outpatient and has an appointment Next Monday. I personally spoke with his niece and updated her of the plan. Also discussed the plan with his primary team. José Miguel Bermudez M.D. Neuro-Hospitalist Time with Patient: Less than 30
== END 2022-07-27 16:51 | DRG 56 ==
LOC: EC 14:34 → 5NMEDONC 18:24
PROVIDERS: ADMIT Hospitalist; ATTEND Hospitalist
DX: G20 Parkinson's disease (principal); G93.41 Metabolic encephalopathy; M62.82 Rhabdomyolysis; F02.80 Dementia in other diseases classified elsewhere, unspecified severity, without behavioral disturbance, psychotic disturbance, mood disturbance, and anxiety; D72.829 Elevated white blood cell count, unspecified; E86.0 Dehydration; Z60.2 Problems related to living alone; Z79.1 Long term (current) use of non-steroidal anti-inflammatories (NSAID); Z79.899 Other long term (current) drug therapy; R94.5 Abnormal results of liver function studies
CPT/HCPCS: 36415; 70450; 71045; 80048; 80053; 81001; 82140; 82550; 82607; 82746; 83735; 84443; 85025; 95816; 96360; 96361; 99285

== ENCOUNTER 2022-09-20 09:36 | Day surgery (SDC) | payer MEDICARE ==
[~2022-09-20 09:36] MED LIST: LACTATED RINGERS 1,000 ML IV SCH; LIDOCAINE 1% (10MG/ML) FOR IV START INTRADERMA PRN
[2022-09-20 10:04] VITALS: TEMP 97.8
[2022-09-20] MEDS ORDERED: methylPREDNISolone ACETATE 80 MG/ML 1 ML VIAL ONE (10:08)
[2022-09-20] MEDS ORDERED: fentaNYL (PF) 50 MCG/ML 2 ML AMP ONE (10:08)
[2022-09-20] MEDS ORDERED: MIDAZOLAM 2 MG/2 ML VIAL ONE (10:08)
[2022-09-20] MEDS ORDERED: IOPAMIDOL M200 10 ML VIAL ONE (10:08)
--- NOTE | 2022-09-20 10:23 | P.PCN ---
Date of Procedure: 09/20/22 Description of Procedure: Procedure: 1. L5-S1 Epidural steroid injection under fluoroscopic guidance # 1/ , 2. Lumbar epidurogram PREOPERATIVE DIAGNOSIS: Lumbar degenerative disc disease, and Lumbar radiculopathy. POSTOPERATIVE DIAGNOSIS: Lumbar degenerative disc disease, and Lumbar radiculopathy. SURGEON: Ly Nolasco ANESTHESIA: Local with 1% lidocaine, and IV sedation: Versed 1 mg, and fentanyl 50 g Sedation supervision start time: 1010 Sedation supervision ended time 1020 EBL: None. Specimen removed: None Fluoroscopic image: saved to electronic medical records PROCEDURE INDICATION: The patient had history of Lumbar degenerative disc disease and Lumbar radiculopathy. Failed to conservative therapy. Presented for epidural steroid injection. PROCEDURE DESCRIPTION: The patient was seen and identified in the preoperative area. Risks, benefits, complications, and alternatives were discussed with the patient. The patient agreed to proceed with the procedure and signed the consent. IV was started, and vital signs were stable. Patient was taken to the procedure area, and time out was completed. The patient was placed in the prone position on procedure table and a pillow was placed under the abdomen to reduce lumbar lordosis. The lumbosacral area was prepped and draped in the usual sterile fashion. Critical pause was taken. Vital signs were closely monitored during the procedure. Using anterior-posterior fluoroscopy, the L5-S1 interlaminar space was identified, and skin and deeper tissues were localized with 1% lidocaine. Using anterior-posterior fluoroscopy, lateral fluoroscopy, and zijo-[id number]-[id number] technique, a 20 gauge 3.5 Tuohy epidural needle entered the epidural space. After negative aspiration of CSF and blood with no paresthesias, 2 ml of [id number] contrast dye was injected and an excellent epidurogram was seen. Again after negative aspiration of CSF and blood with no paresthesias, 6 mL of block solution was injected into the epidural space. Block solution contained 80 mg of Depo-Medrol, and 5 mL of preservative-free normal saline. Needle was withdrawn intact, skin was cleansed, and bandages were applied. COMPLICATIONS: None. DISPOSITION / PLANS: The patient was placed in a supine position and transferred to the recovery area in a stable condition for observation. Patient was discharged from the recovery room after meeting discharge criteria. Home discharge instructions given to the patient by the staff. The patient was reexamined prior to discharge. The patient will schedule a follow up in the clinic in 4 weeks.
[2022-09-20] MEDS ORDERED: IV FLUID CONTINUATION 850 ML IV ONE (10:29)
[2022-09-20] MEDS ORDERED: LACTATED RINGERS 1,000 ML IV SCH (10:30)
[2022-09-20 10:32] VITALS: RESP 20
--- NOTE | 2022-09-20 10:33 | FL ---
Intraoperative/procedural fluoroscopic services were provided for lumbar epidural steroid injection. Total fluoroscopy time is 3 seconds with a total of 2 submitted images to PACS. Please see the operat conner note for further details.
[2022-09-20 10:44] VITALS: BP 157/85; PULSE 59
== END 2022-09-20 10:56 | disposition home or self-care (01) ==
LOC: ORPAIN 09:36
DX: M51.16 Intervertebral disc disorders with radiculopathy, lumbar region (principal); G20 Parkinson's disease; E78.00 Pure hypercholesterolemia, unspecified; F32.A Depression, unspecified; Z79.82 Long term (current) use of aspirin; Z79.02 Long term (current) use of antithrombotics/antiplatelets; Z79.891 Long term (current) use of opiate analgesic; Z79.1 Long term (current) use of non-steroidal anti-inflammatories (NSAID); Z98.890 Other specified postprocedural states; Z79.899 Other long term (current) drug therapy
CPT/HCPCS: 99152; 62323; J2250; J1040; J3010; Q9966

== ENCOUNTER → 2022-10-12 | Outpatient (CLI) | payer MEDICARE ==
[2022-10-12 11:10] VITALS: BP 123/77; PULSE 73; RESP 18; TEMP 97.5
--- NOTE | 2022-10-12 14:52 | P.PAINPG ---
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 Pt states he experienced 70 % pain relief x 3 wks s/p procedure. Pain level is cu rrently at 5 /10 in intensity, constant, localized in the lower lumbar spine, achy in character w shooting towards the BLEs, R>L. Pain is provoked by twisting, lifting and bending. Pain is alleviated with topicals, heat, injections, PT 8 weeks integrated with massage in July 21, hot showers, laying supine and rest. Interventional pain procedures completed include DANIEL L5-S1 x1 Patient is currently on topicals Patient denies any side effects of the medication(s), denies excessive drowsiness or sleepiness, denies suicidal ideation and reports that the current pain medication is helping to control the pain and improve activities of daily living. Patient denies any motor or sensory deficits. Patient denies any fever or night sweats, denies any change in the bowel movements or urination. Physical Examination: -Constitutional: Cooperative. Not in acute distress . - Neurologic: Cranial nerve II to XII intact. No focal neurological deficits. - Psychatric: Alert & oriented x 3. Matching mood & appropriate affect. Judgment and insight intact. - Musculoskeletal: Cervical spine: Muscle bulk/ tone/ strength in the bilateral upper extremities normal Vertebral body tenderness to palpation over Spurling test positive Distraction test positive Facet loading test positive Thoracic spine Muscle bulk / tone/ strength in the bilateral paraspinal muscles normal Vertebral body tender to palpation over Facet loading test positive Lumbar spine: Motor bulk/ tone/ strength lower extremities , thigh and legs : 5/5 Deep tendon reflexes : Normal Knee Jerk. Normal Ankle Jerk . Vertebral body tenderness to palpation over Lumbar Facet Loading Test positive Straight Leg Raise: positive at 30 degrees right side/ left side Gaenslen's Test positive Sacral spine : Severe tenderness over the Sacroiliac joint: right side / left side Range of motion: Flexion of the lumbar spine <60 degrees Range of motion: Extension of the lumbar spine <20 degrees Gaenslen's Test positive Elyssa test: positive right side / left side Thigh Thrust Test Sacral Thrust Test Assessment and plan: Chronic low back pain secondary to lumbar degenerative disc disease, spondylosis with facet arthropathy without myelopathy Pt experienced sufficient pain relief w procedure. He will restart PT and may return to this clinic on an as needed basis. Risks, benefits of procedure discussed and pt verbalized understanding. Denies anticoagulant use or medical history of diabetes. All patient questions answered I have spent less than 30 minutes on patient care today. Dr Mesa was available by phone for the evaluation of this patient. The time was used to review the medical records including relevant urine studies and Prescription history (MAPs), review of the available imaging, evaluation and examination of the patient, coordination of care with the medical staff and if applicable referring physicians, as well as creation of the medical record PQRS Narrative: Hx Alcohol Use (MH) No Home Medications: Ambulatory Orders Atorvastatin [Lipitor] 40 mg PO HS 06/05/17 Tamsulosin [Flomax] 0.4 mg PO DAILY 06/05/17 DULoxetine HCL [Cymbalta] 60 mg PO DAILY 07/24/22 Carbidopa-Levodopa 25-100 mg [Sinemet 25-100 mg] 2 each PO 5XD@06,10,14,18,22 7 Days #70 tab 07/27/22 amantadine HCL [Amantadine] 100 mg PO BID #0 07/27/22 Aspirin [Adult Low Dose Aspirin EC] 81 mg PO DAILY 09/19/22 Meloxicam [Mobic] 15 mg PO DAILY 09/19/22 Controlled Substance Measures - Controlled Substance Measures Is patient prescribed a controlled substance at discharge?: No
== END ==
LOC: PNWHC3 10:26
PROVIDERS: ATTEND Specialist
DX: M47.816 Spondylosis without myelopathy or radiculopathy, lumbar region (principal); M51.36 Other intervertebral disc degeneration, lumbar region
CPT/HCPCS: 99211

== ENCOUNTER 2023-03-10 08:13 | Emergency (ER) | payer MEDICARE ==
[2023-03-10 08:20] VITALS: RESP 18; TEMP 97.8
[2023-03-10] MEDS ORDERED: SODIUM CHLORIDE 0.9% 1,000 ML IV STA (09:14)
[2023-03-10] MEDS ORDERED: MORPHINE SULFATE 4 MG/ML SYRINGE IVP STA (09:14)
--- NOTE | 2023-03-10 09:19 | ED ---
General Adult HPI - General Chief complaint: Abdominal Pain Stated complaint: Rt leg numbness Time Seen by Provider: 03/10/23 08:26 Source: patient Mode of arrival: ambulatory Limitations: no limitations - History of Present Illness Initial comments: 78-year-old male presents to the emergency room for bilateral foot pain and right leg pain. Patient states this pain started in September 2022. It tends to wax and wane. Family states she was moving slower yesterday because of this pain. He was riding a 4 tucker and then later that night the pain worsened. He has had pain with ambulating and had use a wheelchair to get into the ER. Patient also has a history of severe and chronic low back pain secondary to lumbar DJD and spondylosis with facet arthropathy patient does see pain management for this. Patient denies any acute bladder or bowel changes, saddle anesthesia. Denies fevers or chills. Family is also concerned patient may be dehydrated.Patient has no other complaints at this time including shortness of breath, chest pain, abdominal pain, nausea or vomiting, headache, or visual changes. - Related Data Home Medications Medication Instructions Recorded Confirmed Atorvastatin [Lipitor] 40 mg PO HS 06/05/17 03/10/23 Tamsulosin [Flomax] 0.4 mg PO DAILY@1700 06/05/17 03/10/23 Aspirin [Adult Low Dose Aspirin EC] 81 mg PO DAILY@0800 09/19/22 03/10/23 Carbidopa-Levodopa 25-100 mg 2 tab PO 5XD@08,11,14,17,21 03/10/23 03/10/23 [Sinemet 25-100 mg] Multivitamins, Thera [Multivitamin 1 tab PO DAILY@0800 03/10/23 03/10/23 (formulary)] amantadine HCL [Amantadine] 100 mg PO BID@0800,1100 03/10/23 03/10/23 Allergies Allergy/AdvReac Type Severity Reaction Status Date / Time No Known Allergies Allergy Verified 03/10/23 08:57 Review of Systems ROS Statement: Those systems with pertinent positive or pertinent negative responses have been documented in the HPI. ROS Other: All systems not noted in ROS Statement are negative. Past Medical History Past Medical History: Dementia, Musculoskeletal Disorder Additional Past Medical History / Comment(s): Parkinsons, possible but unconfirmed 2018 psp, possible carotid stenosis, History of Any Multi-Drug Resistant Organisms: None Reported Past Surgical History: Hernia Repair Additional Past Surgical History / Comment(s): hernia x 2 Past Anesthesia/Blood Transfusion Reactions: No Reported Reaction Past Psychological History: No Psychological Hx Reported Smoking Status: Never smoker Past Alcohol Use History: None Reported Past Drug Use History: None Reported General Exam Limitations: no limitations General appearance: alert, in no apparent distress Head exam: Present: atraumatic Eye exam: Present: normal appearance, PERRL, EOMI. Absent: scleral icterus, conjunctival injection ENT exam: Present: normal exam, mucous membranes moist Neck exam: Present: normal inspection, full ROM. Absent: tenderness Respiratory exam: Present: normal lung sounds bilaterally. Absent: respiratory distress, wheezes Cardiovascular Exam: Present: regular rate, normal rhythm, normal heart sounds GI/Abdominal exam: Present: soft, normal bowel sounds. Absent: distended, tenderness Extremities exam: Present: normal capillary refill (cap refill < 2 seconds, DP pulses 2+ bilaterally), other (sensation intact RLE). Absent: calf tenderness (no calf tenderness.) Course Vital Signs 03/10/23 03/10/23 03/10/23 08:16 08:52 08:53 Temperature 97.8 F Pulse Rate 71 63 Respiratory 18 18 Rate Blood Pressure 125/74 129/75 O2 Sat by Pulse 96 96 96 Oximetry 03/10/23 03/10/23 03/10/23 09:00 09:10 09:20 Temperature Pulse Rate Respiratory Rate Blood Pressure 139/78 145/85 145/85 O2 Sat by Pulse 95 95 95 Oximetry 03/10/23 03/10/23 03/10/23 09:30 09:40 09:50 Temperature Pulse Rate Respiratory Rate Blood Pressure 145/85 145/85 145/85 O2 Sat by Pulse 97 96 Oximetry 03/10/23 03/10/23 03/10/23 10:00 10:19 10:20 Temperature Pulse Rate 60 Respiratory 18 Rate Blood Pressure 145/85 147/92 147/92 O2 Sat by Pulse 98 98 99 Oximetry 03/10/23 03/10/23 03/10/23 10:30 10:40 10:50 Temperature Pulse Rate Respiratory Rate Blood Pressure 147/92 147/92 147/92 O2 Sat by Pulse 98 79 L 98 Oximetry 03/10/23 03/10/23 03/10/23 11:00 11:10 11:20 Temperature Pulse Rate Respiratory Rate Blood Pressure 147/92 166/90 166/90 O2 Sat by Pulse 97 99 Oximetry 03/10/23 03/10/23 03/10/23 11:30 11:40 11:50 Temperature Pulse Rate Respiratory Rate Blood Pressure 166/90 166/90 166/90 O2 Sat by Pulse 98 98 Oximetry 03/10/23 03/10/23 03/10/23 12:00 12:10 12:20 Temperature Pulse Rate Respiratory Rate Blood Pressure 166/90 160/89 160/89 O2 Sat by Pulse 97 97 Oximetry 03/10/23 03/10/23 12:30 12:40 Temperature Pulse Rate Respiratory Rate Blood Pressure 160/89 160/89 O2 Sat by Pulse 96 96 Oximetry Medical Decision Making - Medical Decision Making Vitals are stable. Patient is well-appearing. HPI and physical exam as documented. Bilateral lower extremities neurovascularly intact. No tenderness erythema or edema of the right groin or testicles. Full range of motion of the lower extremities. CBC CMP unremarkable. X-ray of the hip shows osteoarthritis. X-ray of the lumbar spines shows worsening degenerative changes. CT abdomen and pelvis shows nonspecific finding of soft tissue thickening along the right internal canal that could be postsurgical. No erythema edema or tenderness to the groin or testicles and pain has resolved upon reexamination. He is still having pain in his ankles which has been chronic. At this time patient will follow-up with pain management and is feeling well enough to go home. Will return here for any worsening symptoms. Was pt. sent in by a medical professional or institution (, PA, CLINICAL DIETICIAN, urgent care, hospital, or [place] health care facility...) When possible be specific @ -[No] Did you speak to anyone other than the patient for history (EMS, parent, family, police, friend...)? What history was obtained from this source @ -netoshia and niece's son Did you review nursing and triage notes (agree or disagree)? Why? @ -[I reviewed and agree with nursing and triage notes] Were old charts reviewed (outside hosp., previous admission, EMS record, old EKG, old radiological studies, urgent care reports/EKG's, [place] health care facility records)? Report findings @ -[No old charts were reviewed] Differential Diagnosis (chest pain, altered mental status, abdominal pain women, abdominal pain men, vaginal bleeding, weakness, fever, dyspnea, syncope, headache, dizziness, GI bleed, back pain, seizure, CVA, palpatations, mental health)? @ - hip fracture, DVT ischemic lumb, appendicitis, epididymitis EKG interpreted by me (3pts min.). @ -[As above] X-rays interpreted by me (1pt min.). @ -XR hip and pelvics, lumbar CT interpreted by me (1pt min.). @ -CT Abdomen and pelvid U/S interpreted by me (1pt. min.). @ -[None done] What testing was considered but not performed or refused? (CT, X-rays, U/S, labs)? Why? @ -US groin, Ct performed instread What meds were considered but not given or refused? Why? @ -[None] Did you discuss the management of the patient with other professionals (professionals i.e. , PA, CLINICAL DIETICIAN, lab, RT, psych nurse, 7th grade social studies teacher, international affairs vice president, teacher, client sales and service officer, case loader operator)? Give summary @ -Dr jefferson Was smoking cessation discussed for >3mins.? @ -[No] Was critical care preformed (if so, how long)? @ -[No] Were there social determinants of health that impacted care today? How? (Homelessness, low income, unemployed, alcoholism, drug addiction, transportation, low edu. Level, literacy, decrease access to med. care, long-term, rehab)? @ -[No] Was there de-escalation of care discussed even if they declined (Discuss DNR or withdrawal of care, Hospice)? DNR status @ -[No] What co-morbidities impacted this encounter? (DM, HTN, Smoking, COPD, CAD, Cancer, CVA, ARF, Chemo, Hep., AIDS, mental health diagnosis, sleep apnea, morbid obesity)? @ -[None] Was patient admitted / discharged? Hospital course, mention meds given and route, prescriptions, significant lab abnormalities, going to OR and other pertinent info. @ -see above Undiagnosed new problem with uncertain prognosis? @ -[No] Drug Therapy requiring intensive monitoring for toxicity (Heparin, Nitro, Insulin, Cardizem)? @ -[No] Were any procedures done? @ -[No] Diagnosis/symptom? @ -right leg and groin pain, bilateral lower extremity pain Acute, or Chronic, or Acute on Chronic? @ -acute on chronic Uncomplicated (without systemic symptoms) or Complicated (systemic symptoms)? @ -uncomplicated Side effects of treatment? @ -[No] Exacerbation, Progression, or Severe Exacerbation? @ -[No] Poses a threat to life or bodily function? How? (Chest pain, [place], [place], pneumonia, PE, COPD, DKA, ARF, appy, cholecystitis, CVA, Diverticulitis, Homicidal, Suicidal, threat to staff... and all critical care pts) @ -[No] - Lab Data Result diagrams: 03/10/23 09:27 03/10/23 09:27 Lab Results 03/10/23 03/10/23 Range/Units 09: 09:27 WBC 8.6 (3.8-10.6) k/uL RBC 5.19 (4.30-5.90) m/uL Hgb 15.2 (13.0-17.5) gm/dL Hct 44.9 (39.0-53.0) % MCV 86.4 (80.0-100.0) fL MCH 29.3 (25.0-35.0) pg MCHC 33.9 (31.0-37.0) g/dL RDW 13.5 (11.5-15.5) % Plt Count 160 (150-450) k/uL MPV 7.8 Neutrophils % 71 % Lymphocytes % 17 % Monocytes % 7 % Eosinophils % 3 % Basophils % 0 % Neutrophils # 6.1 (1.3-7.7) k/uL Lymphocytes # 1.4 (1.0-4.8) k/uL Monocytes # 0.6 (0-1.0) k/uL Eosinophils # 0.2 (0-0.7) k/uL Basophils # 0.0 (0-0.2) k/uL Sodium 140 (137-145) mmol/L Potassium 4.0 (3.5-5.1) mmol/L Chloride 105 (98-107) mmol/L Carbon Dioxide 28 (22-30) mmol/L Anion Gap 7 mmol/L BUN 21 H (9-20) mg/dL Creatinine 0.92 (0.66-1.25) mg/dL Est GFR (CKD-EPI)AfAm >90 (>60 ml/min/1.73 sqM) Est GFR (CKD-EPI)NonAf 81 (>60 ml/min/1.73 sqM) Glucose 107 H (74-99) mg/dL Calcium 8.9 (8.4-10.2) mg/dL Magnesium 1.9 (1.6-2.3) mg/dL Total Bilirubin 0.8 (0.2-1.3) mg/dL AST 30 (17-59) U/L ALT 23 (4-49) U/L Alkaline Phosphatase 78 (38-126) U/L Total Protein 5.9 L (6.3-8.2) g/dL Albumin 3.8 (3.5-5.0) g/dL Disposition Clinical Impression: Right groin pain, Bilateral lower extremity pain, Dehydration Disposition: HOME SELF-CARE Condition: Good Instructions (If sedation given, give patient instructions): Leg Pain (ED) Additional Instructions: Please follow up with pain management. Please return to the emergency room for worsening symptoms such as worsening abdominal pain or fevers. Is patient prescribed a controlled substance at d/c from ED?: No Referrals: Mark Lozano MD [REFERRING] - 1-2 days Time of Disposition: 13:10
[2023-03-10 09:37] LABS: Basophils % (A) 0 %; Eosinophils # (A) 0.2 k/uL (0-0.7); Eosinophils % (A) 3 %; HCT 44.9 % (39.0-53.0); HGB 15.2 gm/dL (13.0-17.5); Lymphocytes # (A) 1.4 k/uL (1.0-4.8); Lymphocytes % (A) 17 %; MCH 29.3 pg (25.0-35.0); MCHC 33.9 g/dL (31.0-37.0); MCV 86.4 fL (80.0-100.0); Mean Platelet Volume 7.8; Monocytes # (A) 0.6 k/uL (0-1.0); Monocytes % (A) 7 %; Neutrophils # (A) 6.1 k/uL (1.3-7.7); Neutrophils % (A) 71 %; Platelet Count 160 k/uL (150-450); RBC 5.19 m/uL (4.30-5.90); RDW 13.5 % (11.5-15.5); WBC 8.6 k/uL (3.8-10.6)
[2023-03-10 09:54] LABS: ALT 23 U/L (4-49); AST 30 U/L (17-59); African American GFR (CKD) >90 (>60 ml/min/1.73 sqM); Albumin 3.8 g/dL (3.5-5.0); Alkaline Phosphatase 78 U/L (38-126); Anion Gap 7 mmol/L; Blood Urea Nitrogen 21 mg/dL (9-20); Calcium 8.9 mg/dL (8.4-10.2); Carbon Dioxide 28 mmol/L (22-30); Chloride 105 mmol/L (98-107); Glucose 107 mg/dL (74-99); Magnesium 1.9 mg/dL (1.6-2.3); Non-African American GFR(CKD) 81 (>60 ml/min/1.73 sqM); Sodium 140 mmol/L (137-145); Total Bilirubin 0.8 mg/dL (0.2-1.3); Total Protein 5.9 g/dL (6.3-8.2)
--- NOTE | 2023-03-10 10:11 | XR ---
EXAMINATION TYPE: XR lumbar spine 2 or 3V DATE OF EXAM: 03/10/2023 Comparison: 10/07/2015 Clinical History: 78-year-old male pain Findings: Degenerated dextro convex curvature of the lumbar spine. Moderate to advanced dissection plate degene rative change throughout the lumbar spine, progressed from 2014. 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 New degenerative grade 1 anterolisthesis L4-L5 and grade 1 retrolisthesis T12-L1, L1-L2, L2-L3 redemonstrated. Vertebral body heights are preserved. Impression: 1. Moderate to severe multilevel disc/endplate degenerative change, progressed from 2014. 2. Severe hypertrophic facet arthropathy throughout. 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 3. Degenerative grade 1 spondylolisthesis patent multiple levels as above. Compared to 2014, the ante rolisthesis at L4-L5 is new.
--- NOTE | 2023-03-10 10:12 | XR ---
EXAMINATION TYPE: XR Hip RT and AP Pelvis DATE OF EXAM: 03/10/2023 COMPARISON: NONE HISTORY: 78-year-old male with pain TECHNIQUE: AP view pelvis and 2 views right hip FINDINGS: SI joints appear symmetric and intact as does the pubic symphysis. There is mild degenerative change at both hips with marginal spurring. Vascular calcifications at both groins and upper thighs. No acut e fracture, subluxation, dislocation seen. IMPRESSION: Mild bilateral hip OA. No acute osseous abnormality seen.
--- NOTE | 2023-03-10 11:55 | CT ---
EXAMINATION TYPE: CT abdomen pelvis w con DATE OF EXAM: 03/10/2023 COMPARISON: NONE HISTORY: 78-year-old male Right leg numbness and right inguinal pain. TECHNIQUE: Contiguous axial scanning of the abdomen and pelvis following administration of 100 ml Iso steve 300 IV contrast. Delayed images through the kidneys and coronal/sagittal reconstructions perform ed. CT DLP: 809.9 mGycm Automated exposure control for dose reduction was used. FINDINGS: Heart upper limits of normal in size without pericardial effusion. Some dependent atelectas is in the lower lungs. No pleural effusion. A few small hepatic cysts measuring up to 1.0 cm. Portal venous system is patent. No biliary ductal d ilatation. Gallbladder, glands, and pancreas show no gross abnormality. Spleen measures upper limits of normal at 13.1 cm. Kidneys show multiple parapelvic cysts. Scattered small renal cortical cysts are also present measuri ng up to 1.2 cm. Symmetric uptake and excretion of contrast from both kidneys. No dilated small bowel, free fluid, or free air. Mild atherosclerotic calcifications infrarenal abdominal aorta and common iliac arteries. Normal appendix. There is moderate stool burden. Redundant sigmoid colon. No pericolic inflammatory c hange. Bladder is urine distended. Prostate gland is enlarged at 6.0 x 5.3 cm. Soft tissue present onto the base of the bladder. Strandy density at the bilateral inguinal regions. Query any prior hernia surgery on either side. Mil d thickening along the right inguinal canal, axial image 77. No discrete inguinal canal or femoral ca nal hernia seen. No abnormal fluid collection pelvis or pelvic lymphadenopathy. Bones: Advanced spondylotic change throughout the lumbar spine. Degenerative grade 1 spondylolisthesi s T12-L1, L1-L2, L2-L3, and L4-L5. Severe hypertrophic facet arthropathy throughout. Severe bilateral neuroforaminal stenosis L4-L5 and at least moderate on the left at L2-L3 and L3-L4. Possible severe spinal canal stenosis L3-L4. IMPRESSION: 1. THERE IS SOME STRANDY DENSITY JUST BEHIND THE DEEP INGUINAL RING ON EITHER SIDE. SUSPECT PRIOR ING UINAL HERNIA SURGERIES. CLINICALLY CORRELATE. NO INGUINAL OR FEMORAL CANAL HERNIA SEEN. 2. SOME ASYMMETRIC SOFT TISSUE THICKENING ALONG THE RIGHT INTERNAL CANAL COULD ALSO BE POSTSURGICAL. CORRELATE TO EXCLUDE REACTIVE CHANGES TO ETIOLOGIES SUCH EPIDIDYMITIS. 3. PROSTATOMEGALY AT 6.0 CM. CORRELATE FOR BPH SYMPTOMS. 4. ADVANCED SPONDYLOTIC CHANGE THROUGHOUT THE LUMBAR SPINE. Possible severe spinal canal stenosis at L3-L4. Severe bilateral neural foraminal stenosis at L4-L5 and at least moderate on the left at both L2-L3 and L3-L4.
[2023-03-10 12:42] VITALS: BP 160/89
[2023-03-10 14:01] VITALS: PULSE 65
== END 2023-03-10 14:01 | disposition home or self-care (01) ==
LOC: SUPCPDRO 08:13 → EC 08:13
DX: E86.0 Dehydration (principal); R10.31 Right lower quadrant pain; M79.605 Pain in left leg; M79.604 Pain in right leg; M16.0 Bilateral primary osteoarthritis of hip; G20 Parkinson's disease; F02.80 Dementia in other diseases classified elsewhere, unspecified severity, without behavioral disturbance, psychotic disturbance, mood disturbance, and anxiety; Z79.82 Long term (current) use of aspirin; Z79.899 Other long term (current) drug therapy
CPT/HCPCS: 99285 ×2; 96374 ×2; 96361 ×3; 36415; 80053; 83735; 85025; 72100; 73502; 74177; J2270

== ENCOUNTER → 2023-03-23 | Outpatient (CLI) | payer MEDICARE ==
[2023-03-23 11:44] VITALS: BP 167/89; PULSE 75; RESP 18; TEMP 97.6
--- NOTE | 2023-03-23 14:45 | P.PAINPG ---
PQRS Measure Charge Sheet Comment: A 78 yr old male w niece at side with a history of severe and chronic LBP secondary to lumbar DDD and spondylosis with facet arthropathy without myelopathy presents today for evaluation s/p R hip pain. Pain level is provoked at 6/10 in intensity, constant, localized in the R hip spine, sharp in character w/o shooting pain. Pain is provoked by walking/ over activity for periods of 15 min or more. Pain is alleviated with Pt x 8 wks in Jul 2022, heat, medications, topical, repositioning and rest. Interventional pain procedures completed include DANIEL L5-S1 (Aug 2022) Patient is currently on Tyl, Mobic Patient denies any side effects of the medication(s), denies excessive drowsiness or sleepiness, denies suicidal ideation and reports that the current pain medication is helping to control the pain and improve activities of daily living. Patient denies any motor or sensory deficits. Patient denies any fever or night sweats, denies any change in the bowel movements or urination. Physical Examination: -Constitutional: Cooperative. Not in acute distress . - Neurologic: Cranial nerve II to XII intact. No focal neurological deficits. - Psychatric: Alert & oriented x 3. Matching mood & appropriate affect. Judgment and insight intact. - Musculoskeletal: Cervical spine: Muscle bulk/ tone/ strength in the bilateral upper extremities normal Vertebral body tenderness to palpation over Spurling test positive Distraction test positive Facet loading test positive TTP Thoracic spine Muscle bulk / tone/ strength in the bilateral paraspinal muscles normal Vertebral body tender to palpation over Facet loading test positive TTP Lumbar spine: Motor bulk/ tone/ strength lower extremities , thigh and legs : 5/5 Deep tendon reflexes : Normal Knee Jerk. Normal Ankle Jerk . Vertebral body tenderness to palpation over L1 + Suarez Test positive at L1-L2 Lumbar Facet Loading Test positive Straight Leg Raise: positive at 30 degrees right side/ left side Gaenslen's Test positive Sacral spine : Severe tenderness over the Sacroiliac joint: right side / left side Range of motion: Flexion of the lumbar spine <60 degrees Range of motion: Extension of the lumbar spine <20 degrees Gaenslen's Test positive right side / left side Elyssa test: positive right side / left side Thigh Thrust Test positive right side / left side Sacral Thrust Test positive right side / left side Imaging: CT noncontrast of the pelvis from 03/10/23 reviewed Assessment and plan: Chronic LBP secondary to lumbar DDD, spondylosis with facet arthropathy without myelopathy Recommendation of R TFESI L1-L2 #1. May need a series of injections for optimal pain relief. Risks, benefits of procedure discussed and pt verbalized understanding. Admits to anticoagulant use or medical history of diabetes. Protocol for discontinuation/ continuation of medications saen procedure discussed. Minimal anesthesia provided, if clinically indicated, consisting of Versed and Fentanyl. All questions answered. I have spent less than 30 minutes on patient care today. Dr Mesa was available by phone for the evaluation of this patient. The time was used to review the medical records including relevant urine studies and Prescription history (MAPs), review of the available imaging, evaluation and examination of the patient, coordination of care with the medical staff and if applicable referring physicians, as well as creation of the medical record PQRS Narrative: Hx Alcohol Use (MH) No Home Medications: Ambulatory Orders Atorvastatin [Lipitor] 40 mg PO HS 06/05/17 Tamsulosin [Flomax] 0.4 mg PO DAILY@1700 06/05/17 Aspirin [Adult Low Dose Aspirin EC] 81 mg PO DAILY@0800 09/19/22 Carbidopa-Levodopa 25-100 mg [Sinemet 25-100 mg] 2 tab PO 5XD@08,11,14,17,21 03/10/23 Multivitamins, Thera [Multivitamin (formulary)] 1 tab PO DAILY@0800 03/10/23 amantadine HCL [Amantadine] 100 mg PO BID@0800,1100 03/10/23 Controlled Substance Measures - Controlled Substance Measures Is patient prescribed a controlled substance at discharge?: No
== END ==
LOC: PNWHC3 08:17
PROVIDERS: ATTEND Specialist
DX: M51.34 Other intervertebral disc degeneration, thoracic region (principal); M47.816 Spondylosis without myelopathy or radiculopathy, lumbar region; G89.29 Other chronic pain; Z79.82 Long term (current) use of aspirin
CPT/HCPCS: 99211

== ENCOUNTER 2023-04-25 08:40 | Day surgery (SDC) | payer MEDICARE ==
[~2023-04-25 08:40] MED LIST changes: -LIDOCAINE 1% (10MG/ML) FOR IV START INTRADERMA PRN
[2023-04-25 09:46] VITALS: TEMP 96.5
[2023-04-25] MEDS ORDERED: IOPAMIDOL M200 10 ML VIAL ONE (10:07)
[2023-04-25] MEDS ORDERED: methylPREDNISolone ACETATE 40 MG/ML 1 ML VIAL ONE (10:07)
--- NOTE | 2023-04-25 10:13 | P.PCN ---
Date of Procedure: 04/25/23 Procedure(s) Performed: PREOPERATIVE DIAGNOSIS: 1-Lumbar radiculopathy . 2-lumbar degenerative disc disease. 3-lumbar spondylosis with lumbar facet arthropathy without myelopathy POSTOPERATIVE DIAGNOSIS: 1-lumbar radiculopathy. 2-lumbar degenerative disc disease. 3-lumbar spondylosis with facet arthropathy without myelopathy PROCEDURE 1. Transforaminal epidural steroid injection under fluoroscopic guidance at right L1-2 level. (Fluoroscopy images stored on file in the radiology Department ) 2. Lumbar epidurogram . ANESTHESIA: Local with 1% lidocaine 3 ml. EBL: Minimal PROCEDURE INDICATION: The patient with low back pain and radiculopathy symptoms unresponsive to conservative treatment. PROCEDURE DESCRIPTION / TECHNIQUE: The patient was seen and identified in the preoperative area. Risks, benefits, complications, and alternatives were discussed with the patient. The patient agreed to proceed with the procedure and signed the consent. IV was started, and vital signs were stable. Patient was taken to the OR and time out was completed. The patient was placed in the prone position on procedure table and a pillow was placed under the abdomen to reduce lumbar lordosis. The lumbosacral area was prepped and draped in the usual sterile fashion. Critical pause was taken. Vital signs were closely monitored during the procedure. Using oblique fluoroscopy, the chin of the ``Prasanth dog" Right L1-2 level was identified, and the skin and deeper tissues just below was localized with 1% lidocaine. Subsequently, a 22-gauge 3.5-inch spinal needle was advanced under a tunneled view fluoroscopic guidance just underneath the chin of the ``Prasanth dog at the right L1-2 Under lateral fluoroscopy, the needle was then advanced to the posterior border of the interforaminal space. After negative aspiration of CSF and blood and with no paresthesias, 1 mL Isovue 200 contrast dye was injected excellent epidurogram and outlining of the nerve root Subsequently, 3 mL of block solution containing 40 mg Depo-Medrol and 2 mL of 0.9% normal saline PF was injected. Needle was removed . At the end of the procedure, skin was cleansed, and bandages were applied. COMPLICATIONS:none DISPOSITION / PLANS: The patient was placed in a supine position and transferred to the recovery area in a stable condition for observation. There was no evidence of lower extremity motor or sensory deficit after the procedure. Patient was discharged from the recovery room after meeting discharge criteria. Home discharge instructions were given to the patient by the staff. The patient was reexamined prior to discharge.
[2023-04-25 10:27] VITALS: RESP 16
[2023-04-25 10:28] VITALS: BP 141/82; PULSE 60
--- NOTE | 2023-04-25 10:32 | FL ---
EXAMINATION TYPE: FL guided pain mgmt statistic DATE OF EXAM: 04/25/2023 CLINICAL HISTORY: Low back pain. TECHNIQUE: Fluoroscopy. COMPARISON: None. FINDINGS: Fluoroscopic guidance was provided during pain relief procedure performed by Dr. Mesa . A total of 3 seconds of fluoroscopic time was utilized during the procedure and two spot images ar e acquired. Images acquired shows needle localization in the lumbar spine. TOTAL DAP = [id number] IMPRESSION: As Above.
== END 2023-04-25 10:40 | disposition home or self-care (01) ==
LOC: ORPAIN 08:40
PROVIDERS: ATTEND Specialist
DX: M51.16 Intervertebral disc disorders with radiculopathy, lumbar region (principal); M47.26 Other spondylosis with radiculopathy, lumbar region
CPT/HCPCS: 64483; J1030; Q9966

== ENCOUNTER → 2023-04-25 | Outpatient (CLI) | payer MEDICARE ==
[2023-04-25 15:44] LABS: ALT 17 U/L (10-49); AST 25 U/L (14-35); Chol/HDL Ratio 3.14 Ratio; LDL Cholesterol,Calculated 77.7 mg/dL (0.0-131.0); VLDL Calculation 8.88 mg/dL (5.00-40.00)
== END | disposition home or self-care (01) ==
LOC: LABWHC1 08:18
PROVIDERS: ATTEND Internal Medicine Cardiovascular Disease
DX: E78.2 Mixed hyperlipidemia (principal)
CPT/HCPCS: 36415; 80061; 84450; 84460

== ENCOUNTER 2023-06-09 10:57 | Day surgery (SDC) | payer MEDICARE ==
[~2023-06-09 10:57] MED LIST changes: +LIDOCAINE 1% (10MG/ML) FOR IV START INTRADERMA PRN
[2023-06-09 11:27] VITALS: TEMP 97.9
[2023-06-09] MEDS ORDERED: fentaNYL (PF) 50 MCG/ML 2 ML AMP ONE (11:52)
[2023-06-09] MEDS ORDERED: MIDAZOLAM 2 MG/2 ML VIAL ONE (11:52)
[2023-06-09] MEDS ORDERED: ROPIVACAINE 5 MG/ML 20 ML AMPULE ONE (11:57)
[2023-06-09] MEDS ORDERED: methylPREDNISolone ACETATE 40 MG/ML 1 ML VIAL ONE (11:57)
--- NOTE | 2023-06-09 12:14 | P.PCN ---
Date of Procedure: 06/09/23 Procedure(s) Performed: PREOPERATIVE DIAGNOSIS : 1- Lumbar spondylosis with Facet Arthropathy without myelopathy . 2- Lumber degenerative disc disease POSTOPERATIVE DIAGNOSIS: 1- Lumbar spondylosis with Facet Arthropathy without myelopathy . 2- Lumber degenerative disc disease PROCEDURE: Diagnostic bilateral L3 , L4 , and L5 medial branch block under fluoroscopy guidance(fluoroscopy images available in the radiology Department ) ( To target the facet joint between Bilateral L4- 5 , and L5-S1 )#1St ANESTHESIA:, Monitored anesthesia care as per anesthesia department. EBL: Minimal COMPLICATION: None PROCEDURE INDICATION: Chronic low back pain secondary to Facet arthropathy unresponsive to conservative treatment. PROCEDURE DESCRIPTION: the patient was seen and identified in the preop holding area , risks and benefits and possible complications of the procedure and alternative were discussed with the patient, and the patient agreed to proceed with the procedure and signed the consent and vital signs monitored during the procedure and fluoroscopy was used to maximize the benefit and accuracy of the needle placement, and sedation was given to decrease patient anxiety, patient was taken to the procedure room and placed in prone position vital signs monitored in the back prepped with chlorhexidine X3 then under strict sterile technique using a right oblique fluoroscopy ,the junction of the transverse process and the superior articulating process of the right L3 , L4 , and L5 vertebra which corresponding to the fluoroscopy image of the eye of the Prasanth dog on the block side for the medial branches and subsequently , after local infiltration of skin and subcu tissuies with Ropivacaine 0.5 % , one mL at each level ,then 22-gauge Quincke-type needles , 3 needle was used , each one of them placed at the junction of the base of the transverse process and the superior articular process at the appropriate level, and the needle was advanced until the periosteum contacted, needle placement confirmed with AP oblique and lateral view and after appropriate needle placement confirmed, and after negative aspiration for heme and CSF and there was no paresthesia 1-1/2 mL of Ropivacaine 0.5% mixed with 20 mg Depo-Medrol , then half mL injected at each level after negative aspiration the needle subsequently removed and the same procedure repeated for the left side at left side at L3 , L4 and L5 levels. At the end of the procedure and the needles removed and a bandage applied after the skin was cleaned the cleaning solution patient taken to recovery room in stable condition and monitors in the recovery room for 20-30 minutes and discharged home in stable condition after discharge criteria met and patient will follow up with the pain clinic in 2-4 weeks. note= patient was scheduled to have no significant medial branch block lumbar area at L5-6, and L6-S1, (according to the MRI report done at [facility] patient had 6 lumbar vertebra) but under fluoroscopy guidance I counted the lumbar vertebra I was able to visualize only 5 lumbar vertebrae are for this reason the procedure was done at the levels mentioned above.
[2023-06-09] MEDS ORDERED: LACTATED RINGERS 1,000 ML IV ONE (12:15)
[2023-06-09 12:42] VITALS: BP 137/85; PULSE 61; RESP 18
--- NOTE | 2023-06-09 23:22 | FL ---
EXAMINATION TYPE: FL guided pain mgmt statistic DATE OF EXAM: 06/09/2023 FLUOROSCOPY Fluoroscopy time of 11 seconds was used during bilateral lumbar facet block. 4 image/s document/s th e procedure. 0.63980 Gycm2 DAP
== END 2023-06-09 12:54 | disposition home or self-care (01) ==
LOC: ORPAIN 10:57
PROVIDERS: ATTEND Specialist
DX: M51.36 Other intervertebral disc degeneration, lumbar region (principal); M47.816 Spondylosis without myelopathy or radiculopathy, lumbar region; G89.29 Other chronic pain; Z79.82 Long term (current) use of aspirin
CPT/HCPCS: 64493; 64494 ×2; J2250; J1030; J3010; J2795

== ENCOUNTER → 2023-07-05 | Outpatient (CLI) | payer MEDICARE ==
[2023-07-05 12:05] VITALS: BP 146/86; PULSE 63; RESP 15; TEMP 98.2
--- NOTE | 2023-07-05 13:29 | P.PAINPG ---
PQRS Measure Charge Sheet Comment: A 78 yr old male w niece at side with a history of severe and chronic LBP x years secondary to lumbar DDD and spondylosis with facet arthropathy without myelopathy presents today for evaluation s/p BL MBB L4-L5, L5-S1 #1. Pt states he experienced 80% pain relief x 1 wks s/p procedure. Pain level is provoked at 6/10 in intensity, constant, localized in the R > L lumbar spine, sharp in character w/o shooting pain. Pain is provoked by walking/ over activity for periods of 15 min or more. Pain is alleviated with PT x 8 wks in Jul 2022, heat, medications, topical, repositioning and rest. Oswestry axial pain score of 21. Interventional pain procedures completed include DANIEL L5-S1 (Aug 2022), R TFESI L1-L2 x1, BL MBB L3-L5 x1 Patient is currently on Tyl, Mobic Patient denies any side effects of the medication(s), denies excessive drowsiness or sleepiness, denies suicidal ideation and reports that the current pain medication is helping to control the pain and improve activities of daily living. Patient denies any motor or sensory deficits. Patient denies any fever or night sweats, denies any change in the bowel movements or urination. Physical Examination: -Constitutional: Cooperative. Not in acute distress . - Neurologic: Cranial nerve II to XII intact. No focal neurological deficits. - Psychatric: Alert & oriented x 3. Matching mood & appropriate affect. Judgment and insight intact. - Musculoskeletal: Cervical spine: Muscle bulk/ tone/ strength in the bilateral upper extremities normal Vertebral body tenderness to palpation over Spurling test positive Distraction test positive Facet loading test positive TTP Thoracic spine Muscle bulk / tone/ strength in the bilateral paraspinal muscles normal Vertebral body tender to palpation over Facet loading test positive TTP Lumbar spine: Motor bulk/ tone/ strength lower extremities , thigh and legs : 5/5 Deep tendon reflexes : Normal Knee Jerk. Normal Ankle Jerk . Vertebral body tenderness to palpation + Suarez Test positive Lumbar Facet Loading Test positive over BL L4-L5, L5-L6 Straight Leg Raise: positive at 30 degrees right side/ left side Gaenslen's Test positive Sacral spine : Severe tenderness over the Sacroiliac joint: right side / left side Range of motion: Flexion of the lumbar spine <60 degrees Range of motion: Extension of the lumbar spine <20 degrees Gaenslen's Test positive right side / left side Elyssa test: positive right side / left side Thigh Thrust Test positive right side / left side Sacral Thrust Test positive right side / left side Imaging: CT noncontrast of the pelvis from 03/10/23 reviewed Assessment and plan: Chronic LBP secondary to lumbar DDD, spondylosis with facet arthropathy without myelopathy Recommendation of BL MBB L4-L5, L5-L6 #2. May need a series of injections, up until RFA, for optimal pain relief. Risks, benefits of procedure discussed and pt verbalized understanding. Admits to anticoagulant use or medical history of diabetes. Protocol for discontinuation/ continuation of medications sean procedure discussed. Minimal anesthesia provided, if clinically indicated, consisting of Versed and Fentanyl. All questions answered. I have spent less than 30 minutes on patient care today. Dr Mesa was available by phone for the evaluation of this patient. The time was used to revi ew the medical records including relevant urine studies and Prescription history (MAPs), review of the available imaging, evaluation and examination of the patient, coordination of care with the medical staff and if applicable referring physicians, as well as creation of the medical record PQRS Narrative: Hx Alcohol Use (MH) No Home Medications: Ambulatory Orders Atorvastatin [Lipitor] 40 mg PO HS 06/05/17 Tamsulosin [Flomax] 0.4 mg PO DAILY@1700 06/05/17 Aspirin [Adult Low Dose Aspirin EC] 81 mg PO DAILY@0800 09/19/22 Carbidopa-Levodopa 25-100 mg [Sinemet 25-100 mg] 2 tab PO 5XD@08,11,14,17,21 03/10/23 Multivitamins, Thera [Multivitamin (formulary)] 1 tab PO DAILY@0800 03/10/23 amantadine HCL [Amantadine] 100 mg PO BID@0800,1100 03/10/23 Unk Mobic 15 mg PO DAILY PRN 04/21/23 Acetaminophen-Codeine 300-30mg [Tylenol w/codeine #3] 1 tab PO Q4H PRN 3 Days #15 tablet 05/22/23 Controlled Substance Measures - Controlled Substance Measures Is patient prescribed a controlled substance at discharge?: No
== END ==
LOC: PNWHC3 11:20
PROVIDERS: ATTEND Specialist
DX: M51.36 Other intervertebral disc degeneration, lumbar region (principal); M47.816 Spondylosis without myelopathy or radiculopathy, lumbar region; G89.29 Other chronic pain; Z79.82 Long term (current) use of aspirin
CPT/HCPCS: 99211

== ENCOUNTER → 2023-08-17 | Outpatient (CLI) | payer MEDICARE ==
--- NOTE | 2023-08-17 14:25 | P.PAINPG ---
PQRS Measure Charge Sheet Comment: A 78 yr old male w nephew at side with a history of severe and chronic LBP x years secondary to lumbar DDD and spondylosis with facet arthropathy without myelopathy presents today for evaluation s/p BL MBB L4-L5, L5-S1 #2. Pt states he experienced 80% pain relief x 1-2 wk s/p procedure. Pain level is provoked at 7/10 in intensity, constant, localized in the R > L lumbar spine, throbbing in character w/o shooting pain. Pain is provoked by walking/ over activity for periods of 15 min or more, or by lifting > 20 lbs. Pain is alleviated with PT x 8 wks in Jul 2022, heat, medications, topical, repositioning and rest. Oswestry axial pain score of 20. Interventional pain procedures completed include DANIEL L5-S1 (Aug 2022), R TFESI L1-L2 x1, BL MBB L3-L5 x2 Patient is currently on Tyl, Mobic Patient denies any side effects of the medication(s), denies excessive drowsiness or sleepiness, denies suicidal ideation and reports that the current pain medication is helping to control the pain and improve activities of daily living. Patient denies any motor or sensory deficits. Patient denies any fever or night sweats, denies any change in the bowel movements or urination. Physical Examination: -Constitutional: Cooperative. Not in acute distress . - Neurologic: Cranial nerve II to XII intact. No focal neurological deficits. - Psychatric: Alert & oriented x 3. Matching mood & appropriate affect. Judgment and insight intact. - Musculoskeletal: Cervical spine: Muscle bulk/ tone/ strength in the bilateral upper extremities normal Vertebral body tenderness to palpation over Spurling test positive Distraction test positive Facet loading test positive TTP Thoracic spine Muscle bulk / tone/ strength in the bilateral paraspinal muscles normal Vertebral body tender to palpation over Facet loading test positive TTP Lumbar spine: Motor bulk/ tone/ strength lower extremities , thigh and legs : 5/5 Deep tendon reflexes : Normal Knee Jerk. Normal Ankle Jerk . Vertebral body tenderness to palpation + Suarez Test positive Lumbar Facet Loading Test positive over BL L4-L5, L5-S1 Straight Leg Raise: positive at 30 degrees right side/ left side Gaenslen's Test positive Sacral spine : Severe tenderness over the Sacroiliac joint: right side / left side Range of motion: Flexion of the lumbar spine <60 degrees Range of motion: Extension of the lumbar spine <20 degrees Gaenslen's Test positive right side / left side Elyssa test: positive right side / left side Thigh Thrust Test positive right side / left side Sacral Thrust Test positive right side / left side Imaging: CT noncontrast of the pelvis from 03/10/23 reviewed Assessment and plan: Chronic LBP secondary to lumbar DDD, spondylosis with facet arthropathy without myelopathy Recommendation of BL RFA L4-L5, L5-S1. Pt exhibited optimal pain relief w prior facet block procedures. Risks, benefits of procedure discussed and pt verbalized understanding. Admits to anticoagulant use or medical history of diabetes. Protocol for discontinuation/ continuation of medications sean procedure discussed. Minimal anesthesia provided, if clinically indicated, consisting of Versed and Fentanyl. All questions answered. I have spent less than 30 minutes on patient care today. Dr Mesa was available by phone for the evaluation of this patient. The time was used to review the medical records including relevant urine studies and Prescription history (MAPs), review of the available imaging, evaluation and examination of the patient, coordination of care with the medical staff and if applicable referring physicians, as well as creation of the medical record PQRS Narrative: Hx Alcohol Use (MH) No Home Medications: Ambulatory Orders Atorvastatin [Lipitor] 40 mg PO HS 06/05/17 Tamsulosin [Flomax] 0.4 mg PO DAILY@1700 06/05/17 Aspirin [Adult Low Dose Aspirin EC] 81 mg PO DAILY@0800 09/19/22 Carbidopa-Levodopa 25-100 mg [Sinemet 25-100 mg] 2 tab PO 5XD@08,11,14,17,21 03/10/23 Multivitamins, Thera [Multivitamin (formulary)] 1 tab PO DAILY@0800 03/10/23 amantadine HCL [Amantadine] 100 mg PO BID@0800,1100 03/10/23 Meloxicam [Mobic] 15 mg PO DIRECTED 07/25/23 Controlled Substance Measures - Controlled Substance Measures Is patient prescribed a controlled substance at discharge?: No
[2023-08-17 14:35] VITALS: BP 151/82; PULSE 81; RESP 15; TEMP 98.9
== END ==
LOC: PNWHC3 14:09
PROVIDERS: ATTEND Specialist
DX: M51.37 Other intervertebral disc degeneration, lumbosacral region (principal); M47.817 Spondylosis without myelopathy or radiculopathy, lumbosacral region; G89.29 Other chronic pain; Z79.82 Long term (current) use of aspirin
CPT/HCPCS: 99211

== ENCOUNTER 2023-09-08 10:51 | Day surgery (SDC) | payer MEDICARE ==
[2023-09-08] MEDS ORDERED: LACTATED RINGERS 1,000 ML IV ONE (11:11)
[2023-09-08 11:17] VITALS: RESP 16; TEMP 98.5
[2023-09-08] MEDS ORDERED: LACTATED RINGERS 1,000 ML IV SCH (11:30)
[2023-09-08] MEDS ORDERED: MIDAZOLAM 2 MG/2 ML VIAL ONE (11:44)
[2023-09-08] MEDS ORDERED: fentaNYL (PF) 50 MCG/ML 2 ML AMP ONE (11:44)
[2023-09-08] MEDS ORDERED: ROPIVACAINE 5MG/ML 20ML VIAL ONE (11:48)
[2023-09-08] MEDS ORDERED: IV FLUID CONTINUATION 1,000 ML IV ONE (12:23)
--- NOTE | 2023-09-08 12:25 | FL ---
Intraoperative/procedural fluoroscopic services were provided for bilateral lumbar RAD frequency. Tot al fluoroscopy time is 52.7 seconds with a total of 7 submitted images to PACS. Total DAP 0.07830 mGy m2. Please see the operative note for further details.
[2023-09-08 12:30] VITALS: BP 134/81; PULSE 70
--- NOTE | 2023-09-08 12:36 | P.PCN ---
Date of Procedure: 09/08/23 Description of Procedure: PREOPERATIVE DIAGNOSIS: 1-Lumbar Spondylosis with Facet Arthropathy without myelopathy. 2- Lumber degenerative disc disease. POSTOPERATIVE DIAGNOSIS: 1- Lumbar Spondylosis with Facet Arthropathy without myelopathy. 2- Lumber degenerative disc disease. PROCEDURES : Bilateral Radiofrequency thermocoagulation, L3 , L4 , and L5 medial branch, with fluoroscopic guidance (fluoroscopy images available in the radiology department) ( to denervate the facet joint at bilateral L4-5 ,and L5-S1 levels ). ANESTHESIA: Monitored anesthesia care as per anesthesia department , Moderate sedation with intravenous versed 2 mg and fentaneyl 100 mcg, and local infiltration with Ropivacaine 0.5 % . EBL: Minimal PROCEDURE INDICATION: The patient with low back pain secondary to lumbar facet arthropathy who had more than 50% relief of her pain with previous diagnostic lumbar medial branch block with bupivacaine. PROCEDURE DESCRIPTION / TECHNIQUE: The patient was seen and identified in the preoperative area. Risks, benefits, complications, including but not limited to risk of infection ,bleeding , allergic reactions to the medications and no complete pain releife , and alternatives were discussed with the patient, the patient agreed to proceed with the procedure and signed the consent. IV was started. Vital signs remained stable throughout the procedure. Patient was taken to the OR and time out was completed. The patient was placed in the prone position on the procedure table. The lumber area was prepped and draped in the usual sterile fashion. . Vital signs were closely monitored during the procedure .IV sedation was used during the procedure to decrease patients anxiety. Using AP and then oblique fluoroscopy, the ``eye of the Prasanth dog corresponding to the connection between the superior and transverse articular processes of right L4, and L5 and junction of superior articular process with right ala of the sacrum were identified, marked, and localized with 1% lidocaine. Subsequently, a [id number] radiofrequency cannula with a 10-mm active tip was advanced guided by fluoroscopy to each of the``eyes of the Prasanth dog at right L4, and L5. Each site then underwent sensory testing at 50 Hz and 0 to 1 volt and motor testing at 2.5 Hz and 0 to 3 volt with local stimulation, but no radicular symptoms down the legs. Thereafter each sites underwent radiofrequency thermocoagulation at 80 degrees celsius for 90 seconds after injecting 0.5 ml of PF Ropivacaine 1ml, then after the thermocoagulation done , 1 ml of the block solution containing Depo-Medrol 20 mg and 3 ml of Ropivacaine 0.5% was injected at the right L3 , L4 , and L5 , levels after negative aspiration of CSF and blood and with no paresthesias. Cannulas were retracted while injecting lidocaine 1% until the needle is out. The same procedure was repeated at the level of Left L4, L5, and S1 vertebral levels. RF needles were taken out after the procedure. At the end of the procedure, the skin was cleansed and bandages were applied. COMPLICATIONS: No acute complications. DISPOSITION / PLANS: The patient was placed in a supine position and transferred to the recovery area in a stable condition for observation and was discharged from the recovery room after meeting discharge criteria. Home discharge instructions given to the patient by the staff. The patient was reexamined prior to discharge. The patient will schedule a follow up in the clinic in 2-4 weeks.
== END 2023-09-08 12:58 | disposition home or self-care (01) ==
LOC: ORPAIN 10:51
PROVIDERS: ATTEND Pain Medicine Interventional Pain Medicine
DX: M51.36 Other intervertebral disc degeneration, lumbar region (principal); M47.816 Spondylosis without myelopathy or radiculopathy, lumbar region; E78.5 Hyperlipidemia, unspecified; Z79.82 Long term (current) use of aspirin; Z79.899 Other long term (current) drug therapy
CPT/HCPCS: 64635; 64636 ×2; J2250; J2001; J3010; J2795

== ENCOUNTER → 2023-10-12 | Outpatient (CLI) | payer MEDICARE ==
[2023-10-12 13:01] VITALS: BP 121/79; PULSE 78; RESP 16; TEMP 97.6
--- NOTE | 2023-10-12 15:09 | P.PAINPG ---
Objective - Vital Signs Vital signs: Intake & Output 10/11/23 10/12/23 10/12/23 18:59 06:59 18:59 Weight 79.379 kg PQRS Measure Charge Sheet Comment: A 78 yr old male w nephew at side with a history of severe and chronic LBP x years secondary to lumbar DDD and spondylosis with facet arthropathy without myelopathy presents today for evaluation s/p BL RFA L4-L5, L5-S1. Pt states he experienced 60% pain relief s/p procedure. Pain level is provoked at 8/10 in int ensity, constant, localized in the R > L lumbar spine, predominantly axial, throbbing in character w occasional shooting pain to the R hip/ buttock/ RLE and ankle. Pain is provoked by walking/ over activity for periods of 15 min or more, or by lifting > 20 lbs. Pain is alleviated with PT x 8 wks in Jul 2022, physician guided home stretches daily since Jul 2022, heat, medications, topical, repositioning and rest. Oswestry axial pain score of 20. Interventional pain procedures completed include DANIEL L5-S1 (Aug 2022), R TFESI L1-L2 x1, BL RFA L3-L5 Patient is currently on Tyl, Mobic Patient denies any side effects of the medication(s), denies excessive drowsiness or sleepiness, denies suicidal ideation and reports that the current pain medication is helping to control the pain and improve activities of daily living. Patient denies any motor or sensory deficits. Patient denies any fever or night sweats, denies any change in the bowel movements or urination. Physical Examination: -Constitutional: Cooperative. Not in acute distress . - Neurologic: Cranial nerve II to XII intact. No focal neurological deficits. - Psychatric: Alert & oriented x 3. Matching mood & appropriate affect. Judg ment and insight intact. - Musculoskeletal: Cervical spine: Muscle bulk/ tone/ strength in the bilateral upper extremities normal Vertebral body tenderness to palpation over Spurling test positive Distraction test positive Facet loading test positive TTP Thoracic spine Muscle bulk / tone/ strength in the bilateral paraspinal muscles normal Vertebral body tender to palpation over Facet loading test positive TTP Lumbar spine: Motor bulk/ tone/ strength lower extremities , thigh and legs : 5/5 Deep tendon reflexes : Normal Knee Jerk. Normal Ankle Jerk . Vertebral body tenderness to palpation Suarez Test positive Lumbar Facet Loading Test positive Straight Leg Raise: positive at 30 degrees right side/ left side Gaenslen's Test positive Sacral spine : Severe tenderness over the Sacroiliac joint: right side / left side Range of motion: Flexion of the lumbar spine <60 degrees Range of motion: Extension of the lumbar spine <20 degrees Gaenslen's Test positive right side / left side Elyssa test: positive right side / left side Thigh Thrust Test positive right side / left side Sacral Thrust Test positive right side / left side Imaging: CT noncontrast of the pelvis from 03/10/23 reviewed Assessment and plan: Chronic LBP secondary to lumbar DDD, spondylosis with facet arthropathy without myelopathy, R Sacroiliitis Recommendation of R SI injection. May need a series of injections for optimal pain relief. Risks, benefits of procedure discussed and pt verbalized understanding. Admits to anticoagulant use or medical history of diabetes. Protocol for discontinuation/ continuation of medications sean procedure discussed. All questions answered. I have spent less than 30 minutes on patient care today. Dr Mesa was available by phone for the evaluation of this patient. The time was used to review the medical records including relevant urine studies and Prescription history (MAPs), review of the available imaging, evaluation and examination of the patient, coordination of care with the medical staff and if applicable referring physicians, as well as creation of the medical record - Pain Location Bilateral Lower Back Non-Pharmacological Interventions: Heat, Inactivity, Massage, Physical Therapy, Position/Reposition, Sitting Pharmacological Interventions: Block, PRN Medication, Topical Medication PQRS Narrative: Hx Alcohol Use (MH) No Home Medications: Ambulatory Orders Atorvastatin [Lipitor] 40 mg PO HS 06/05/17 Tamsulosin [Flomax] 0.4 mg PO DAILY@1700 06/05/17 Aspirin [Adult Low Dose Aspirin EC] 81 mg PO DAILY@0800 09/19/22 Carbidopa-Levodopa 25-100 mg [Sinemet 25-100 mg] 2 tab PO 5XD@08,11,14,,03/10/23 Multivitamins, Thera [Multivitamin (formulary)] 1 tab PO DAILY@0800 03/10/23 amantadine HCL [Amantadine] 100 mg PO BID@0800,1100 03/10/23 Meloxicam [Mobic] 15 mg PO DIRECTED 07/25/23 Controlled Substance Measures - Controlled Substance Measures Is patient prescribed a controlled substance at discharge?: No
== END ==
LOC: PNWHC3 12:01
PROVIDERS: ATTEND Specialist
DX: M51.36 Other intervertebral disc degeneration, lumbar region (principal); M47.816 Spondylosis without myelopathy or radiculopathy, lumbar region; G89.29 Other chronic pain; M46.1 Sacroiliitis, not elsewhere classified; Z79.82 Long term (current) use of aspirin
CPT/HCPCS: 99211